=== PATIENT | male | born 1955 | race Caucasian/White ===

== ENCOUNTER 2018-07-21 07:09 | Observation (INO) | payer BC ==
[2018-07-21] MEDS ORDERED: NS 0.9% 1000 ML** 1,000 ML IV ONE ×2 (07:37→09:10)
[2018-07-21] MEDS ORDERED: Diltiazem DRIP* 100 MG/100 ML ADDV.BAG IVPB ONE (07:37)
[2018-07-21] MEDS ORDERED: Diltiazem IV* 5 MG/ML 5 ML VIAL (for loading dose/IV Push) (25 MG) IV SLOW PU ONE (07:37)
--- NOTE | 2018-07-21 07:37 | ED ---
Palpitations / Dysrhythmia - HPI Summary HPI Summary: A 62 y/o male presents to [facility] with a chief complaint of atrial fibrillation since 06:00 07/21/18. He reports that he felt his symptoms coming on for the past week. Per triage note, the patient has a 4-5 year Hx of a-fib. The patient is also diaphoretic. He claims that he may have a little SOB and CP due to bronchitis. He claims that he takes Metoprolol and Ramipril. he reports that his PCP is Casper Donald at Dr. Bender's office and his warehouse distribution associate is Dr. Rodriguez. - History of Current Complaint Chief Complaint: EDDysrhythmPalp Time Seen by Provider: 07/21/18 07:26 Hx Obtained From: Patient Onset/Duration: Lasting Hours, Still Present Timing: Constant Severity Initially: Mild Severity Currently: Mild Character: Irregular Aggravating: Nothing Alleviating: Nothing Associated Signs & Symptoms: Chest Pain, Shortness of Breath, Diaphoresis - Allergy/Home Medications Allergies/Adverse Reactions: Allergies Allergy/AdvReac Type Severity Reaction Status Date / Time No Known Allergies Allergy Verified 05/04/14 07:59 Home Medications: Home Medications Metformin HCl 500 mg PO QID 07/21/18 [History Confirmed 07/21/18] Ramipril 5 mg PO SEE INSTRUCTIONS 07/21/18 [History Confirmed 07/21/18] Ramipril 10 mg PO SEE INSTRUCTIONS 07/21/18 [History Confirmed 07/21/18] PMH/Surg Hx/FS Hx/Imm Hx Endocrine/Hematology History: Denies: Hx Diabetes Cardiovascular History: Reports: Hx Angioplasty - 3 stents, Hx Atrial Fibrillation, Hx Coronary Artery Disease, Hx Hypercholesterolemia, Hx Hypertension Denies: Hx Auto Implanted Cardiovert Defib Respiratory History: Reports: Hx Sleep Apnea - current CPAP user GI History: Reports: Hx Diverticulosis History: Denies: Hx Renal Disease Musculoskeletal History: Reports: Hx Back Problems - chronic pain, was told to do PT, has not done so yet 06/2013 Sensory History: Reports: Hx Contacts or Glasses Opthamlomology History: Reports: Hx Contacts or Glasses - Surgical History Surgery Procedure, Year, and Place: umbilical hernia repair x 10 yrs, five heart caths with 3 stents placed Hx Anesthesia Reactions: No Infectious Disease History: No Infectious Disease History: Denies: Traveled Outside the [place] in Last 30 Days - Family History Known Family History: Positive: Other - Mother and father positive for coronary disease, Sister has arrhythmia - Social History Alcohol Use: None Substance Use Type: Reports: None Smoking Status (MU): Never Smoked Tobacco Review of Systems Positive: Skin Diaphoresis. Negative: Fever Positive: Chest Pain, Other - Positive: atrial fibrillation Positive: Shortness Of Breath All Other Systems Reviewed And Are Negative: Yes Physical Exam - Summary Physical Exam Summary: Appearance: The patient is well-nourished in no acute distress and in no acute pain. Skin: The skin is warm and dry and skin color reflects adequate perfusion. HEENT: The head is normocephalic and atraumatic. The pupils are equal and reactive. The conjunctivae are clear and without drainage. Nares are patent and without drainage. Mouth reveals moist mucous membranes and the throat is without erythema and exudate. The external ears are intact. The ear canals are patent and without drainage. The tympanic membranes are intact. Neck: The neck is supple with full range of motion and non-tender. There are no carotid bruits. There is no neck vein distension. Respiratory: Chest is non-tender. Lungs are clear to auscultation and breath sounds are symmetrical and equal. Cardiovascular: Tachycardic, irregular rhythm. There is no murmur or rub auscultated. There is no peripheral edema and pulses are symmetrical and equal. Abdomen: The abdomen is soft and non-tender. There are normal bowel sounds heard in all four quadrants and there is no organomegaly palpated. Musculoskeletal: There is no back tenderness noted. Extremities are non-tender with full range of motion. There is good capillary refill. There is no peripheral edema or calf tenderness elicited. Neurological: Patient is alert and oriented to person, place and time. The patient has symmetrical motor strength in all four extremities. Cranial nerves are grossly intact. Deep tendon reflexes are symmetrical and equal in all four extremities. Psychiatric: The patient has an appropriate affect and does not exhibit any anxiety or depression. Triage Information Reviewed: Yes Vital Signs On Initial Exam: Initial Vitals Temp Pulse Resp BP Pulse Ox 98.2 F 98 22 97/79 98 07/21/18 07:16 07/21/18 07:16 07/21/18 07:16 07/21/18 07:16 07/21/18 07:16 Vital Signs Reviewed: Yes Diagnostics - Vital Signs Vital Signs Temp Pulse Resp BP Pulse Ox 07/21/18 07:16 98.2 F 98 22 97/79 98 - Laboratory Result Diagrams: 07/21/18 07:31 07/21/18 07:31 Lab Statement: Any lab studies that have been ordered have been reviewed, and results considered in the medical decision making process. - EKG 07:21 Cardiac Rate: Other Rate - Atrial fibrillation at 162 bpm EKG Rhythm: Atrial Fibrillation Summary of EKG Findings: Atrial fibrillation at 162 bpm with RVR. Course/Dx - Course Course Of Treatment: Mr. Rodrigues presented to the emergency department concerned that he was in atrial fibrillation. The last week or so has been feeling his heart rate going irregularly when he is quiet. Today he noticed it going fast and irregular when he was active. He denied any chest pain or shortness of breath he was nontoxic in appearance on arrival albeit slightly diaphoretic. He was placed in a room on a monitor, an IV was initiated and an EKG was obtained. He was noted to be in atrial fibrillation with RVR and he was given a Cardizem bolus and started on a drip. He tolerated these well and his lab work was unremarkable aside from a mildly elevated lactic acid. The hospitalist service was contacted for admission - Diagnoses Provider Diagnoses: Atrial fibrillation with rapid ventricular response - Physician Notifications Discussed Care Of Patient With: Vangie Lea Time Discussed With Above Provider: 08:45 Instructed by Provider To: Admit As Inpatient - Critical Care Time Critical Care Time: 30-74 min Discharge - Sign-Out/Discharge Documenting (check all that apply): Patient Departure - admit - Discharge Plan Condition: Fair Disposition: ADMITTED TO [facility] - Billing Disposition and Condition Condition: FAIR Disposition: Admitted to [facility] - Attestation Statements Document Initiated by Scribe: Yes Documenting Scribe: Himanshu Ortiz Provider For Whom Hernando is Documenting (Include Credential): Charly Vogt MD Scribe Attestation: IHimanshu, scribed for Charly Vogt MD on 07/21/18 at 1437. Scribe Documentation Reviewed: Yes Provider Attestation: The documentation as recorded by the Himanshu pichardo accurately reflects the service I personally performed and the decisions made by me, Charly Vogt MD Status of Scribe Document: Viewed
[2018-07-21] MEDS ORDERED: Diltiazem IV* 5 MG/ML 5 ML VIAL (for loading dose/IV Push) (25 MG) ONE (07:40)
[2018-07-21 07:57] LABS: ABS Basophils 0 10^3/ul (0-0.2); ABS Eosinophils 0 10^3/ul (0-0.6); ABS Monocytes 0.4 10^3/ul (0-0.8); ABS Nucleated RBC 0 10^3/ul; Eosinophil % 0.9 %; Hematocrit 46 % (42-52); Mean Corpuscular HGB Conc 35 g/dl (31-36); Mean Corpuscular Hemoglobin 33 pg (27-31); Mean Corpuscular Volume 97 fL (80-94); Mean Platelet Volume 9.7 fL (7.4-10.4); Nucleated Red Blood Cells % 0.1; Platelet Count 140 10^3/ul (150-450); Red Blood Count 4.77 10^6/ul (4.00-5.40); Red Cell Distribution Width 13 % (10.5-15); White Blood Count 4.5 10^3/ul (3.5-10.8)
[2018-07-21] MEDS ORDERED: Diltiazem IV VIAL* 125 MG in NS 0.9% 100 ML* 100 ML IV ONE ×2 (08:00→09:11)
[2018-07-21] MEDS ORDERED: Diltiazem IV VIAL* 125 MG in NS 0.9% 100 ML* 100 ML IV SCH (08:00)
[2018-07-21 08:02] LABS: INR 0.87 (0.77-1.02)
[2018-07-21 08:15] LABS: Albumin 4.4 g/dL (3.2-5.2); Albumin/Globulin Ratio 1.3 (1-3); BUN/Creatinine Ratio 15.7 (8-20); EGFR African American 61.9 (>60); EGFR Non-African American 51.2 (>60); Globulin 3.4 g/dL (2-4); Magnesium 2.1 mg/dL (1.9-2.7); Potassium 3.6 mmol/L (3.5-5.0); Total Bilirubin 0.9 mg/dL (0.2-1.0); Total Protein 7.8 g/dL (6.4-8.9)
[2018-07-21 08:17] LABS: Troponin I 0.01 ng/mL (<0.04)
[2018-07-21 08:44] LABS: TSH (Thyroid Stimulating Horm) 5.54 mcIU/mL (0.34-5.60)
--- OUTSIDE RECORDS SUMMARY | 2018-07-21 08:51 | XMS REPORT | Continuity of Care Document ---
:1955 External Reference #:[id number] Author Name ChaconJessica aguirre Care Team Providers Name Role Phone Gabriella Bender MD Primary Care Physician Unavailable Payers Type Date Identification Numbers Payment Provider Subscriber Effective: Policy Number: [id number] BS Facets Neri Parmar 2015 PayID: [id number] [address]Enma Curtis [place] [address] Expires: 2015 Policy Number: [id number] [employer]ets Neri Parmar PayID: [id number] [address] [address] [place] [address] Expires: 2012 Policy Number: [id number] BS Gabriella MANDY Retana Brettobiastabitha PayID: [id number] [facility] [address] [place] [address] Advance Directives Description No Information Available Problems Date Description Provider Status Onset: 01/30/2011 Adult health examination Max Llamas M.D. Active Onset: 01/30/2011 Benign essential hypertension Max Llamas M.D. Active Onset: 01/30/2011 Coronary arteriosclerosis Max Llamas M.D. Active Onset: 01/30/2011 Pure hypercholesterolemia Max Llamas M.D. Active Onset: 01/30/2011 Sleep apnea Max Llamas M.D. Active Onset: 01/30/2011 Abdominal aortic aneurysm without Max Llamas M.D. Active rupture Onset: 10/09/2011 Mixed hyperlipidemia Max Llamas M.D. Active Onset: 10/09/2011 Impaired fasting glycaemia Max Llamas M.D. Active Onset: 10/09/2011 Dizziness and giddiness Max Llamas M.D. Active Onset: 10/09/2011 Neck pain Max Llamas M.D. Active Onset: 04/24/2009 Obstructive sleep apnea syndrome Michelle Lozada, REBECCA, Active RN, CLASSIFICATIONS OFFICER CC/CM- Onset: 03/22/2015 Chronic ischemic heart disease, Robert Rodriguez M.D., Active unspecified [facility] Onset: 03/28/2015 Essential hypertension Max Llamas M.D. Active Onset: 12/02/2015 Type 2 diabetes mellitus Max Llamas M.D. Active Onset: 04/08/2017 Peripheral vascular disease Max Llamas M.D. 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 [employer] Tobacco Use Start: Unknown End: Former Pipe Smoker quit 2011 Unknown Smoking Status Reviewed: 07/08/18 Former Pipe Smoker quit 2011 ETOH Use Denies alcohol use Tobacco Use Start: Unknown Quit pipe 2011 on Father's Day ; Quit cigarretes 10 years ago Recreational Drug Use Denies Drug Use Exercise Type/Frequency Exercises sporadically Allergies, Adverse Reactions, Alerts Description No Known Drug Allergies Medications Medication Date Status Form Strength Qnty SIG Indications Ordering Provider Ramipril 07/08/ Active Capsules 5mg 30caps 1 by Casper 2018 mouth Odilon, DONI every day Ramipril 04/28/ Active Capsules 10mg 30caps 1 by I10 Casper 2018 mouth Odilon, [employer] every day Onetouch Ultra 12/02/ Active Kit w/Device 1units check Max Perez 2 2015 blood Muriel, sugar as M.D. needed Metformin HCL 12/01/ Active Tablets 500mg 120tab 2 by E11.9 Benson 2016 s mouth Pachikara, twice a M.D. day Cpap Mask And 09/26/ Active Device cpap G47.30 Max Lacey 2014 supplies Muriel -machine, Angel headgear, cushion, tubing, filters, machine recheck for sleep apnea dx 780.57 Metoprolol 10/14/ Active Tablets ER 50mg 90tabs 1 by Robert Stallings Succinate ER 2012 24HR mouth Rodriguez, every day M.D., FACC, FASNC Simvastatin 01/08/ Active Tablets 40mg 90tabs take 1 Max Perez 2008 tablet at Muriel, bedtime M.D. Aspirin / Active Tablets 81mg 100tab 1 PO qd Barken, 0000 s MD Jesse Co Q-10 / Active Capsules 100 90caps 1 po qd Unknown 0000 Prevident 5000 / Active Paste 1.1% daily Unknown Booster Plus 0000 Nitroglycerin / Active Tablets 0.4mg 25tabs 1 sl Robert Stallings 0000 Sub q5mins x3 Rodriguez, as needed M.D., for chest FACC, pain FASNC Ramipril 05/26/ Hx Capsules 5mg 30caps 1 by Casper 2018 - mouth DONI Donald 07/08/ every day 2018 Ramipril 04/07/ Hx Capsules 5mg 90caps 1 by I10 Casper 2017 - mouth Odilon [employer] 04/28/ every day 2017 Amoxicillin/Cla 03/03/ Hx Tablets 875-125mg 30tabs 1 by K57.32 Gene velazquez 2016 - mouth Schwed, Potassium 04/02/ twice a M.D. 2016 day Augmentin 02/19/ Hx Tablets 875-125mg 20tabs 2 tabs Michelle 2015 for 10 Lozada, days by DNP, RN, mouth CLASSIFICATIONS OFFICER CC/CM-BC (started on 02/15/15) Cipro 02/05/ Hx Tablets 500mg 20tabs 1 by Other 2015 - mouth Ordering 02/07/ twice a Provider 2014 day Flagyl 02/05/ Hx Tablets 500mg 30tabs 1 by Other 2014 - mouth Ordering 02/07/ daily Provider 2014 Nitrostat 09/26/ Hx Tablets 0.4mg 25tabs one sl I25.10 Robert Stallings 2015 - Sub q5min up Michael, 11/17/ to 3 M.D., 2017 doses as FACC, needed FASNC Cipro 07/16/ Hx Tablets 750mg 14tabs 1 po bid Max Perez 2011 - Muriel, 10/08/ M.D. 2012 Flagyl 07/16/ Hx Tablets 500mg 28tabs 1 po qid Max Perez 2011 - for 7 Muriel, 10/08/ days M.D. 2011 Azithromycin 04/03/ Hx Tablets 250mg 6tabs 2 qd for Jadon 2010 - 1 day, Binh Hirsch, 10/08/ then 1 qd M.D.,[facility] 2011 Ramipril 03/06/ Hx Capsules 5mg 90caps take 1 Jadon 2010 - capsule D. [place], 03/24/ once M.D.,FACP 2013 daily Lotrisone 12/03/ Hx Cream 1-0.05% 15gm apply bid Max Perez 2009 - for 2-4 Muriel, 01/30/ weeks M.D. 2010 Atenolol 12/25/ Hx Tablets 50mg 180tab take 1 Max Perez 2007 - s tablet by Muriel, 10/14/ mouth M.D. 2012 twice a day Atenolol / Hx Tablets 50mg 90tabs 1 PO qd Max Perez 0000 - Muriel, M.D. 2007 Nitroglycerin / Hx Tablets 0.4mg 25tabs 1 sl as 414.01 Max Perez 0000 - Sub needed Muriel, M.D. 2014 Lipitor / Hx Tablets 20mg 30tabs 1 po qhs Max Perez 0000 - Muriel, 01/08/ M.D. 2008 Altace / Hx Capsules 5mg 90caps 1 PO qd Max Perez 0000 - Muriel, 03/06/ M.D. 2010 Niaspan / Hx Tablets ER 1000mg 90tabs 1 PO qpm Edi 0000 - MD Jesse 2010 Medications Administered in Office Medication Date Status Form Strength Qnty SIG Indications Ordering Provider Inj, Administered Injection Rajat Vasquez Regadenoson, 016 DO Jay Jay 0.1 MG FACC Technetium TC Administered Injection Rajat SLefty 99M 016 DO Jay Jay Tetrofosmin, FACC Per Unit Dose Up To 40 Millicuries Immunizations CPT Code Status Date Vaccine Lot # 54075 Given 01/02/2016 Pneumonia Vaccine [id number] Given 10/02/2015 Zoster (Zostavax) [id number] Given 2008 Tdap - Tetanus/Diptheria/Acellular Pertussis [id number] Given 01/02/1999 Td (History By Patient) 53058 Refused 03/28/2015 Influenza Virus Vaccine, Quadrivalent, Split, Preservative Free Vital Signs Date Vital Result Comment 07/08/2018 8:46am Weight 278.00 lb Heart Rate 61 /min BP Systolic 124 mmHg BP Diastolic 77 mmHg Body Temperature 97.0 F O2 % BldC Oximetry 97 % 04/28/2018 9:47am BP Systolic Sitting 178 mmHg 162/103, 162/98 BP Diastolic Sitting 90 mmHg 162/103, 162/98 04/07/2018 8:41am Height 68 inches 5'8" Weight 275.00 lb Heart Rate 57 /min BP Systolic 158 mmHg BP Diastolic 86 mmHg BP Systolic Recheck 146 mmHg BP Diastolic Recheck 84 mmHg O2 % BldC Oximetry 95 % BMI (Body Mass Index) 41.8 kg/m2 03/11/2018 8:51am Height 68 inches 5'8" Weight 273.56 lb Heart Rate 56 /min BP Systolic Sitting 148 mmHg Lue large cuff BP Diastolic Sitting 94 mmHg Lue large cuff Respiratory Rate 16 /min O2 % BldC Oximetry 97 % BMI (Body Mass Index) 41.6 kg/m2 03/09/2018 8:23am Weight 274.00 lb with shoes Heart Rate 62 /min BP Systolic Sitting 130 mmHg Lue reg cuff BP Diastolic Sitting 74 mmHg Lue reg cuff BP Systolic Standing 128 mmHg Lue reg cuff BP Diastolic Standing 74 mmHg Lue reg cuff Respiratory Rate 12 /min 10/07/2017 8:57am Weight 276.00 lb Heart Rate 62 /min BP Systolic 126 mmHg BP Diastolic 80 mmHg Body Temperature 97.2 F O2 % BldC Oximetry 97 % 04/08/2017 9:21am Height 67.25 inches 5'7.25" Weight 276.00 lb Heart Rate 52 /min BP Systolic Sitting 144 mmHg BP Diastolic Sitting 90 mmHg Body Temperature 97.1 F O2 % BldC Oximetry 98 % BMI (Body Mass Index) 42.9 kg/m2 03/05/2017 8:08am Height 68 inches 5'8" Weight 274.00 lb Heart Rate 68 /min BP Systolic Sitting 122 mmHg BP Diastolic Sitting 84 mmHg Respiratory Rate 14 /min O2 % BldC Oximetry 98 % BMI (Body Mass Index) 41.7 kg/m2 03/03/2017 10:45am Heart Rate 66 /min BP Systolic 136 mmHg BP Diastolic 90 mmHg Respiratory Rate 16 /min Body Temperature 98.3 F 01/11/2017 8:46am Height 68 inches 5'8" Weight 279.00 lb Heart Rate 59 /min BP Systolic 132 mmHg BP Diastolic 70 mmHg Body Temperature 97.0 F O2 % BldC Oximetry 97 % BMI (Body Mass Index) 42.4 kg/m2 11/18/2016 8:21am Weight 274.00 lb with shoes 11/18/2016 8:56am Height 68 inches 5'8" Weight 273.00 lb Heart Rate 64 /min BP Systolic Sitting 142 mmHg Lue large cuff BP Diastolic Sitting 94 mmHg Lue large cuff BP Systolic Standing 136 mmHg Lue large cuff BP Diastolic Standing 88 mmHg Lue large cuff Respiratory Rate 16 /min BMI (Body Mass Index) 41.5 kg/m2 Ejection Fraction 16 echo 06/02/16 10/06/2016 9:00am Weight 276.00 lb Heart Rate 64 /min BP Systolic Sitting 126 mmHg BP Diastolic Sitting 84 mmHg Respiratory Rate 15 /min O2 % BldC Oximetry 98 % 06/23/2016 1:17pm Height 67.5 inches 5'7.50" Weight 282.00 lb no shoes Heart Rate 60 /min BP Systolic Sitting 134 mmHg Lue lrg cuff BP Diastolic Sitting 88 mmHg Lue lrg cuff BP Systolic Standing 138 mmHg BP Diastolic Standing 90 mmHg Respiratory Rate 17 /min BMI (Body Mass Index) 43.5 kg/m2 Ejection Fraction 55-60% 06/02/2016 04/07/2016 9:19am Height 67.5 inches 5'7.50" Weight 274.00 lb Heart Rate 54 /min BP Systolic 118 mmHg BP Diastolic 78 mmHg O2 % BldC Oximetry 96 % BMI (Body Mass Index) 42.3 kg/m2 03/25/2016 8:31am Height 68 inches 5'8" Weight 274.00 lb no shoes Heart Rate 66 /min BP Systolic Sitting 126 mmHg Ra lrg cuff BP Diastolic Sitting 86 mmHg Ra lrg cuff BP Systolic Standing 122 mmHg Ra lrg cuff BP Diastolic Standing 84 mmHg Ra lrg cuff Respiratory Rate 18 /min BMI (Body Mass Index) 41.7 kg/m2 Ejection Fraction 54% 02/13/2014 03/03/2016 2:55pm Height 68 inches 5'8" Weight 271.00 lb Heart Rate 67 /min BP Systolic Sitting 130 mmHg BP Diastolic Sitting 70 mmHg Respiratory Rate 16 /min O2 % BldC Oximetry 97 % BMI (Body Mass Index) 41.2 kg/m2 01/02/2016 9:07am Weight 273.00 lb Heart Rate 55 /min BP Systolic Sitting 123 mmHg BP Diastolic Sitting 72 mmHg Body Temperature 97.0 F 12/02/2015 4:48pm Weight 273.00 lb Heart Rate 72 /min BP Systolic Sitting 137 mmHg BP Diastolic Sitting 86 mmHg Body Temperature 97.9 F 10/02/2015 9:04am Weight 283.00 lb Heart Rate 58 /min BP Systolic Sitting 132 mmHg BP Diastolic Sitting 82 mmHg Body Temperature 96.5 F 03/28/2015 8:44am Height 68.5 inches 5'8.50" Weight 278.00 lb Heart Rate 54 /min BP Systolic 122 mmHg BP Diastolic 80 mmHg Respiratory Rate 13 /min Body Temperature 98.0 F O2 % BldC Oximetry 98 % BMI (Body Mass Index) 41.7 kg/m2 03/22/2015 2:28pm Height 68.5 inches 5'8.50" Weight 278.00 lb Heart Rate 64 /min BP Systolic Sitting 134 mmHg LA, large BP Diastolic Sitting 90 mmHg LA, large BP Systolic Standing 128 mmHg BP Diastolic Standing 88 mmHg BMI (Body Mass Index) 41.7 kg/m2 Ejection Fraction 54% 02/13/14 echo 02/19/2015 3:28pm Height 68.5 inches 5'8.50" Weight 279.00 lb w/shoes on Heart Rate 61 /min BP Systolic Sitting 128 mmHg BP Diastolic Sitting 66 mmHg Respiratory Rate 20 /min O2 % BldC Oximetry 97 % BMI (Body Mass Index) 41.8 kg/m2 Neck Circumference in inches 17.5 02/07/2015 2:16pm Weight 277.00 lb Heart Rate 56 /min BP Systolic Sitting 124 mmHg BP Diastolic Sitting 82 mmHg Body Temperature 98.6 F O2 % BldC Oximetry 96 % 09/26/2014 9:00am Weight 283.75 lb Heart Rate 52 /min BP Systolic Sitting 126 mmHg BP Diastolic Sitting 82 mmHg O2 % BldC Oximetry 98 % 06/01/2014 11:11am Weight 279.00 lb Heart Rate 55 /min BP Systolic Sitting 122 mmHg BP Diastolic Sitting 76 mmHg Body Temperature 96.8 F O2 % BldC Oximetry 95 % 03/27/2014 9:02am Height 67.75 inches 5'7.75" Weight 278.75 lb Heart Rate 60 /min BP Systolic Sitting 118 mmHg BP Diastolic Sitting 72 mmHg BMI (Body Mass Index) 42.7 kg/m2 03/12/2014 9:31am Height 67.75 inches 5'7.75" Weight 273.00 lb Heart Rate 56 /min BP Systolic Sitting 122 mmHg LA lg cuff BP Diastolic Sitting 88 mmHg LA lg cuff BP Systolic Standing 126 mmHg LA lg cuff BP Diastolic Standing 84 mmHg LA lg cuff Respiratory Rate 12 /min BMI (Body Mass Index) 41.8 kg/m2 03/24/2013 9:29am Height 67.75 inches 5'7.75" Weight 281.00 lb Heart Rate 72 /min BP Systolic Sitting 114 mmHg BP Diastolic Sitting 74 mmHg BMI (Body Mass Index) 43.0 kg/m2 10/09/2011 9:06am Height 67.5 inches 5'7.50" Weight 259.75 lb Heart Rate 64 /min BP Systolic Sitting 128 mmHg BP Diastolic Sitting 78 mmHg BMI (Body Mass Index) 40.1 kg/m2 01/30/2011 9:35am Height 63.5 inches 5'3.50" Weight 253.00 lb Heart Rate 64 /min BP Systolic Sitting 134 mmHg BP Diastolic Sitting 80 mmHg BMI (Body Mass Index) 44.1 kg/m2 12/03/2009 8:51am Weight 248.00 lb Heart Rate 62 /min BP Systolic Sitting 120 mmHg BP Diastolic Sitting 80 mmHg Body Temperature 97.8 F 07/16/2009 3:59pm Weight 258.00 lb Heart Rate 68 /min BP Systolic Sitting 136 mmHg BP Diastolic Sitting 70 mmHg 2008 9:59am Height 67 inches 5'7" Weight 257.00 lb Heart Rate 60 /min BP Systolic Sitting 118 mmHg BP Diastolic Sitting 78 mmHg Respiratory Rate 16 /min BMI (Body Mass Index) 40.2 kg/m2 11/30/2007 10:05am Height 67.5 inches 5'7.50" Weight 249.00 lb Heart Rate 60 /min BP Systolic Sitting 128 mmHg BP Diastolic Sitting 84 mmHg BMI (Body Mass Index) 38.4 kg/m2 05/31/2007 9:54am Height 67.5 inches 5'7.50" Weight 250.00 lb Heart Rate 60 /min BP Systolic Sitting 120 mmHg BP Diastolic Sitting 80 mmHg BMI (Body Mass Index) 38.6 kg/m2 Results Test Date Facility Test Result H/L Range Note Comp Metabolic Panel 03/26/2018 [facility] Sodium 141 mmol/L N 135-[address] [place] [address] [phone] Chloride 105 mmol/L N 101-111 Co2 Carbon Dioxide 30 mmol/L N 22-32 Glucose 165 mg/dL High 70-100 Blood Urea Nitrogen 15 mg/dL N 6-24 Creatinine 0.98 mg/dL N 0.67-1.17 BUN/Creatinine Ratio 15.3 N 8-20 Calcium 9.6 mg/dL N 8.6-10.3 Total Protein 7.2 g/dL N 6.4-8.9 Albumin 4.6 g/dL N 3.2-5.2 Globulin 2.6 g/dL N 2-4 Albumin/Globulin Ratio 1.8 N 1-3 Total Bilirubin 1.20 mg/dL High 0.2-1.0 Alkaline Phosphatase 51 U/L N 34-104 Alt 33 U/L N 7-52 Ast 20 U/L N 13-39 Egfr Non- 77.2 >60 Egfr 93.5 >60 1 Potassium 5.3 mmol/L High 3.5-5.0 Anion Gap 6 mmol/L N 2-11 Urine Microalbumin 03/26/2018 [facility] Ur Microalbumin < 15.[address] (mg/L) [place] [address] [phone] Urine Creatinine 145.00 mg/dL Urine Microalbumin/Creatinine TNP <31 2 Laboratory test 03/26/2018 [facility] Hemoglobin A1c 6.8 % High 4.0-5.[address] (Glyco HGB) [place] [address] [phone] Lipid Profile 03/26/2018 [facility] Triglycerides 275 4 (Trig/Chol/HDL) [address] mg/[place] [address] [phone] Cholesterol 121 mg/dL 5 HDL Cholesterol 36.8 mg/dL 6 LDL Cholesterol 29 mg/dL 7 Laboratory test 10/07/2017 [facility] Hemoglobin A1c 6.7 5-7 finding Comp Metabolic Panel 03/29/2017 [facility] Sodium 137 mmol/L N 133-[address] [place] [address] [phone] Chloride 104 mmol/L N 101-111 Co2 Carbon Dioxide 27 mmol/L N 22-32 Glucose 102 mg/dL High 70-100 Blood Urea Nitrogen 23 mg/dL N 6-24 Creatinine 1.06 mg/dL N 0.67-1.17 BUN/Creatinine Ratio 21.7 High 8-20 Calcium 9.3 mg/dL N 8.6-10.3 Total Protein 7.3 g/dL N 6.4-8.9 Albumin 4.6 g/dL N 3.2-5.2 Globulin 2.7 g/dL N 2-4 Albumin/Globulin Ratio 1.7 N 1-3 Total Bilirubin 1.10 mg/dL High 0.2-1.0 Alkaline Phosphatase 44 U/L N 34-104 Alt 18 U/L N 7-52 Ast 16 U/L N 13-39 Egfr Non- 70.8 N >60 Egfr 91.0 N >60 8 Potassium 5.2 mmol/L High 3.5-5.0 Anion Gap 6 mmol/L N 2-11 Urine Microalbumin 03/29/2017 [facility] Urine Creatinine 114.17 mg/dL N Random [address] [place] [address] [phone] Ur Microalbumin (mg/L) < 15.0 mg/L N Urine Microalbumin/Creatinine TNP ug/mg N <31 9 Laboratory test 03/29/2017 [facility] Hemoglobin A1c 6.1 % High 4.0-5.6 [address] (Glyco HGB) [place] [address] [phone] Lipid Profile 03/29/2017 [facility] Triglycerides 263 N 11 (Trig/Chol/HDL) [address] mg/[place] [address] [phone] Cholesterol 134 mg/dL N 12 HDL Cholesterol 36.3 mg/dL N 13 LDL Cholesterol 45 mg/dL N 14 Laboratory test 10/06/2016 [facility] Hemoglobin A1c 6.2 5-7 finding Comp Metabolic Panel 03/30/2016 [facility] Sodium 136 mmol/L N 133-[address] [place] [address] [phone] Potassium 5.5 mmol/L High 3.5-5.0 Chloride 103 mmol/L N 101-111 Co2 Carbon Dioxide 28 mmol/L N 22-32 Anion Gap 5 mmol/L N 2-11 Glucose 99 mg/dL N 70-100 Blood Urea Nitrogen 18 mg/dL N 6-24 Creatinine 1.07 mg/dL N 0.67-1.17 BUN/Creatinine Ratio 16.8 N 8-20 Calcium 9.6 mg/dL N 8.6-10.3 Total Protein 7.4 g/dL N 6.4-8.9 Albumin 4.5 g/dL N 3.2-5.2 Globulin 2.9 g/dL N 2-4 Albumin/Globulin Ratio 1.6 N 1-3 Total Bilirubin 1.00 mg/dL N 0.2-1.0 Alkaline Phosphatase 40 U/L N 34-104 Alt 23 U/L N 7-52 Ast 17 U/L N 13-39 Egfr Non- 70.3 N >60 Egfr 90.4 N >60 15 Laboratory test 03/30/2016 [facility] Hemoglobin A1c 6.0 % N Less than [address] (Glyco HGB) 6.0 [place] [address] [phone] Lipid Profile 03/30/2016 [facility] Triglycerides 206 N 17 (Trig/Chol/HDL) [address] mg/[place] [address] [phone] Cholesterol 118 mg/dL N 18 HDL Cholesterol 37.0 mg/dL N 19 LDL Cholesterol 40 mg/dL N 20 Basic Metabolic Panel 01/02/2016 [facility] Sodium 138 mmol/L N 133-[address] [place] [address] [phone] Potassium 4.6 mmol/L N 3.5-5.0 Chloride 105 mmol/L N 101-111 Co2 Carbon Dioxide 27 mmol/L N 22-32 Anion Gap 6 mmol/L N 2-11 Glucose 105 mg/dL High 70-100 Blood Urea Nitrogen 16 mg/dL N 6-24 Creatinine 1.05 mg/dL N 0.67-1.17 BUN/Creatinine Ratio 15.2 N 8-20 Calcium 9.4 mg/dL N 8.6-10.3 Egfr Non- 71.8 N >60 Egfr 92.3 N >60 21 Basic Metabolic 12/03/2015 [facility] Sodium 130 mmol/L Low 133-[address] [place] [address] [phone] Potassium 4.6 mmol/L N 3.5-5.0 Chloride 95 mmol/L Low 101-111 Co2 Carbon Dioxide 28 mmol/L N 22-32 Anion Gap 7 mmol/L N 2-11 Glucose 447 mg/dL High 70-100 Blood Urea Nitrogen 17 mg/dL N 6-24 Creatinine 1.14 mg/dL N 0.67-1.17 BUN/Creatinine Ratio 14.9 N 8-20 Calcium 9.7 mg/dL N 8.6-10.3 Egfr Non- 65.3 N >60 Egfr 84.0 N >60 22 Laboratory test 12/03/2015 [facility] C-Peptide 3.9 ng/mL N 1.1 - [address] 4[address] [place] [address] [phone] Urine 12/03/2015 [facility] Ur Microalbumin 14.0 mg/L N Microalbumin [address] (mg/L) [place] [address] [phone] Urine Creatinine 100.44 mg/dL N Urine Microalbumin/Creatinine 13.9 ug/mg N <31 Laboratory test 12/02/2015 [facility] Hemoglobin A1c 11 High 5-7 finding Laboratory test 09/13/2015 [facility] Surgical Pathology SEE RESULT [address] [place] [address] [phone] Lipid Profile 03/05/2015 [facility] Triglycerides 286 mg/dL N 25, 26 (Trig/Chol/HDL) [address] [place] [address] [phone] Cholesterol 125 mg/dL N 27 HDL Cholesterol 33.8 mg/dL N 28 LDL Cholesterol 34 mg/dL N 29 Comp Metabolic Panel 03/05/2015 [facility] Sodium 137 mmol/L N 133-[address] [place] [address] [phone] Potassium 4.4 mmol/L N 3.5-5.0 Chloride 105 mmol/L N 101-111 Co2 Carbon Dioxide 26 mmol/L N 22-32 Anion Gap 6 mmol/L N 2-11 Glucose 156 mg/dL High 70-100 Blood Urea Nitrogen 14 mg/dL N 6-24 Creatinine 1.04 mg/dL N 0.67-1.17 BUN/Creatinine Ratio 13.5 N 8-20 Calcium 9.1 mg/dL N 8.6-10.3 Total Protein 6.8 g/dL N 6.4-8.9 Albumin 4.3 g/dL N 3.2-5.2 Globulin 2.5 g/dL N 2-4 Albumin/Globulin Ratio 1.7 N 1-3 Total Bilirubin 1.00 mg/dL N 0.2-1.0 Alkaline Phosphatase 50 U/L N 34-104 Alt 30 U/L N 7-52 Ast 20 U/L N 13-39 Egfr Non- 72.8 N >60 Egfr 93.7 N >60 30 Laboratory 03/05/2015 [facility] Hemoglobin A1c 6.5 % High Less [address] (Glyco HGB) [place] [address] 6.0 [phone] Laboratory 02/07/2015 [facility] Urine Culture And SEE RESULT [address] [place] [address] [phone] Ua Routine 02/07/2015 [facility] Ua Specific 1.025 Burton Ua PH 5 Ua Color yellow Ua Appera clear Ua WBC trace Ua Protein negative Ua Glucose negative Ua Ketones trace Ua Bilirubin small Ua Urobilinogen negative Ua Nitrite negative Ua Occult Blood negative Urinalysis Profile 01/31/2015 [facility] Urine Color Yellow N [address] [place] [address] [phone] Urine Appearance Clear N Urine Specific Burton 1.011 N 1.010-1.030 Urine pH 5.0 N 5-9 Urine Urobilinogen Negative N Negative Urine Ketones Negative N Negative Urine Protein Negative N Negative Urine Leukocytes Negative N Negative Urine Blood Negative N Negative Urine Nitrite Negative N Negative Urine Bilirubin Negative N Negative Urine Glucose Negative N Negative Comp Metabolic Panel 01/31/2015 [facility] Sodium 137 mmol/L N 133-[address] [place] [address] [phone] Potassium 4.1 mmol/L N 3.5-5.0 Chloride 103 mmol/L N 101-111 Co2 Carbon Dioxide 27 mmol/L N 22-32 Anion Gap 7 mmol/L N 2-11 Glucose 144 mg/dL High 70-100 Blood Urea Nitrogen 16 mg/dL N 6-24 Creatinine 1.10 mg/dL N 0.67-1.17 BUN/Creatinine Ratio 14.5 N 8-20 Calcium 9.4 mg/dL N 8.6-10.3 Total Protein 7.5 g/dL N 6.4-8.9 Albumin 4.7 g/dL N 3.2-5.2 Globulin 2.8 g/dL N 2-4 Albumin/Globulin Ratio 1.7 N 1-3 Total Bilirubin 1.40 mg/dL High 0.2-1.0 Alkaline Phosphatase 46 U/L N 34-104 Alt 39 U/L N 7-52 Ast 24 U/L N 13-39 Egfr Non- 68.3 N >60 Egfr 87.8 N >60 33 Laboratory test finding 01/31/2015 [facility] Lipase 27 U/L N 11.0-82.[address] [place] [address] [phone] C Reactive Protein 1.48 mg/L N < 5.00 34 CBC Auto Diff 01/31/2015 [facility] White Blood 8.5 10^3/uL N 4.8-10.[address] [place] [address] [phone] Red Blood Count 4.69 10^6/uL N 4.0-5.4 Hemoglobin 15.5 g/dL N 14.0-18.0 Hematocrit 47 % N 42-52 Mean Corpuscular Volume 100 fL High 80-94 Mean Corpuscular Hemoglobin 33 pg High 27-31 Mean Corpuscular HGB Conc 33 g/dL N 31-36 Red Cell Distribution Width 14 % N 10.5-15 Platelet Count 160 10^3/uL N 150-450 Mean Platelet Volume 10 um3 N 7.4-10.4 Abs Neutrophils 6.1 10^3/uL N 1.5-7.7 Abs Lymphocytes 1.7 10^3/uL N 1.0-4.8 Abs Monocytes 0.6 10^3/uL N 0-0.8 Abs Eosinophils 0.1 10^3/uL N 0-0.6 Abs Basophils 0 10^3/uL N 0-0.2 Abs Nucleated RBC 0 10^3/uL N Granulocyte % 71.6 % N 38-83 Lymphocyte % 19.4 % Low 25-47 Monocyte % 7.1 % N 1-9 Eosinophil % 1.5 % N 0-6 Basophil % 0.4 % N 0-2 Nucleated Red Blood Cells % 0 N Laboratory test 01/31/2015 [facility] Lactic Acid 1.4 mmol/L N 0.5-2.2 finding [address] [place] [address] [phone] Inr/Protime 01/31/2015 [facility] Inr 0.92 N 0.78-1.07 [address] [place] [address] [phone] Laboratory test 01/31/2015 [facility] Partial 33.3 seconds N 26.0-36.[address] [place] [address] [place] [address] PTT [phone] Blood Culture SEE RESULT BELOW 35 Laboratory test 09/26/2014 [facility] Hemoglobin A1c 6.3 5-7 finding Laboratory test 05/04/2014 [facility] Blood Urea 16 mg/dL N 6- 24 finding [address] [facility] [place] [address] [phone] Creatinine 05/04/2014 [facility] Creatinine 1.07 mg/dL N 0.67- 1.[address] [place] [address] [phone] Egfr Non- 70.7 N >60 Egfr 91.0 N >60 36 Laboratory test 03/27/2014 [facility] Hemoglobin A1c 5.8 5-7 finding Lipid Profile 03/20/2014 [facility] Triglycerides 255 mg/dL N 37, 38 (Trig/Chol/HDL) [address] [place] [address] [phone] Cholesterol 132 mg/dL N 39 HDL Cholesterol 35.1 mg/dL N 40 LDL Cholesterol 46 mg/dL N 41 Comp Metabolic Panel 03/20/2014 [facility] Sodium 140 mmol/L N 133-145 [address] [place] [address] [phone] Potassium 5.0 mmol/L N 3.7-5.6 Chloride 105 mmol/L N 101-111 Co2 Carbon Dioxide 31 mmol/L N 22-32 Anion Gap 4 mmol/L N 2-11 Glucose 142 mg/dL High 70-100 Blood Urea Nitrogen 17 mg/dL N 6-24 Creatinine 1.10 mg/dL N 0.67-1.17 BUN/Creatinine Ratio 15.5 N 8-20 Calcium 9.4 mg/dL N 8.6-10.3 Total Protein 6.7 g/dL N 6.4-8.9 Albumin 4.2 g/dL N 3.2-5.2 Globulin 2.5 g/dL N 2-4 Albumin/Globulin Ratio 1.7 N 1-3 Total Bilirubin 0.90 mg/dL N 0.2-1.0 Alkaline Phosphatase 48 U/L N 34-104 Alt 27 U/L N 7-52 Ast 18 U/L N 13-39 Egfr Non- 68.5 N >60 Egfr 88.1 N >60 42 CBC Auto Diff 03/24/2013 [facility] White Blood 5.0 10^3/uL 4.8-10.[address] [place] [address] [phone] Red Blood Count 4.45 10^6/uL 4.0-5.4 Hemoglobin 15.3 g/dL 14.0-18.0 Hematocrit 45 % 42-52 Mean Corpuscular Volume 101 fL High 80-94 Mean Corpuscular Hemoglobin 34 pg High 27-31 Mean Corpuscular HGB Conc 34 g/dL 31-36 Red Cell Distribution Width 14 % 10.5-15 Platelet Count 155 10^3/uL 150-450 Mean Platelet Volume 11 um3 High 7.4-10.4 Abs Neutrophils 3.0 10^3/uL 1.5-7.7 Abs Lymphocytes 1.5 10^3/uL 1.0-4.8 Abs Monocytes 0.4 10^3/uL 0-0.8 Abs Eosinophils 0.1 10^3/uL 0-0.6 Abs Basophils 0 10^3/uL 0-0.2 Abs Nucleated RBC 0 10^3/uL Granulocyte % 60.6 % 38-83 Lymphocyte % 30.2 % 25-47 Monocyte % 7.1 % 1-9 Eosinophil % 1.8 % 0-6 Basophil % 0.3 % 0-2 Nucleated Red Blood Cells % 0.1 Comp Metabolic Panel 03/24/2013 [facility] Sodium 140 mmol/L 133-145 [place] [address] [phone] Potassium 4.7 mmol/L 3.5-5.0 Chloride 104 mmol/L 101-111 Co2 Carbon Dioxide 29.0 mmol/L 22-32 Anion Gap 7.0 mmol/L 2-11 Glucose 107 mg/dL High 70-100 Blood Urea Nitrogen 13 mg/dL 6-24 Creatinine 1.00 mg/dL 0.50-1.40 BUN/Creatinine Ratio 13.0 8-20 Calcium 9.6 mg/dL 8.1-9.9 Total Protein 6.6 g/dL 6.2-8.1 Albumin 4.3 g/dL 3.6-5.4 Globulin 2.3 g/dL 2-4 Albumin/Globulin Ratio 1.9 1-3 Total Bilirubin 1.6 mg/dL High 0.4-1.5 Alkaline Phosphatase 48 U/L 30-110 Alt 36 U/L 14-54 Ast 20 U/L 12-42 Egfr Non- 76.7 >60 Egfr 98.7 >60 43 Laboratory 03/24/2013 [facility] Hepatitis C Nonreactive Nonreactive 44 test finding [facility] [place] [address] [phone] Vitamin B12 405 pg/mL 180-914 45 Folate > 24.8 ng/mL High 2-16 46 Lipid Profile 03/24/2013 [facility] Triglycerides 215 mg/dL High 40-200 (Trig/Chol/HDL) [place] [address] [phone] Cholesterol 126 mg/dL Less than 200 HDL Cholesterol 32 mg/dL Low 40-60 47 Cholesterol/HDL Ratio 3.9 Average 1-4.44 LDL Cholesterol 51.0 Less Than 100 48 Laboratory test 11/22/2011 [facility] Hemoglobin A1c 5.7 % Less Than [address] [place] [address] 6.0 [place] [address] [phone] MRSA/Vre Screen 11/22/2011 [facility] M --------- [address] [facility] ------- [place] [address] <SEE [phone] NOTE> CBC Auto Diff 11/21/2011 [facility] White Blood 6.7 CUMM 4.8- 10.[address] [place] [address] [phone] Red Cell Count 4.42 CUMM Low 4.6-6.2 Hemoglobin 15.6 g/dL 14.0-18.0 Hematocrit 44 % 42-52 Mean Corpuscular Volume 100 um3 High 80-94 Mean Corpuscular Hemoglob 35 pg High 27-31 Mean Corpuscular HGB Cone 35 g/dL 32-36 Redcell Distribution WDTH 13 % 10.5-15 Platelet Count 139 CUMM Low 150-450 Mean Platelet Volume 10.1 um3 7.4-10.4 Gran % 53.4 % 38-83 Lymph % 35.0 % 25-47 Mononuclear % 8.1 % 1-9 Eosinophil % 2.7 % 0-6 Basophil % 0.8 % 0-2 Abs Lymphs 2.4 1.0-4.8 Abs Mononuclear 0.5 0-0.8 Absolute Neutrophil Count 3.5 1.5-7.7 Abs Eosinophils 0.2 0-0.6 Abs Basophils 0.1 0-0.2 Comp Metabolic Panel 11/21/2011 [facility] Sodium 139 mmol/L 135-[address] [place] [address] [phone] Potassium 3.8 mmol/L 3.5-5.0 Chloride 105 mmol/L 101-111 Co2 (Carbon Dioxide) 25.0 mmol/L 22-32 Anion Gap 9.0 mmol/L 2-11 51 Glucose 155 mg/dL High 70-100 BUN 20 mg/dL 6-24 Creatinine 1.1 mg/dL 0.50-1.40 One Over Creatinine 0.90 BUN/Creatinine Ratio 18.2 8-20 Calcium 9.2 mg/dL 8.1-9.9 Total Protein 6.5 GM/DL 6.2-8.1 Albumin 4.2 GM/DL 3.6-5.4 Globulin 2.3 GM/DL 2-4 Albumin/Globulin Ratio 1.8 1-3 Bilirubin Total 1.1 mg/dL 0.4-1.5 52 Alkaline Phosphatase 73 U/L 39-117 Alt (SGPT) 43 U/L 17-63 Ast (Sgot) 32 U/L 12-42 eGFR Non- 69.2 > 60 eGFR 89.1 > 60 53 Liver Function 11/21/2011 [facility] Bilirubin Direct 0.2 mg/dL 0.1-0.5 Panel [address] [place] [address] [phone] Indirect Bilirubin 0.9 mg/dL 0.3-1.0 54 Laboratory test 11/21/2011 [facility] Magnesium 2.1 mg/dL 1.7 -2.6 finding [address] [place] [address] [phone] Amylase 40 U/L 20-120 55 CPK (Creatine Kinase) 152 U/L 0-200 CKMB 11/21/2011 [facility] CKMB In NG/ML 1.7 NG/ML 0.3-4.0 [address] [place] [address] [phone] % CKMB 1 %MB 0-9 56 Laboratory test 11/21/2011 [facility] Troponin-I 0.01 NG/ML 0 -0.06 57 finding [address] [place] [address] [phone] TSH 3.42 MIU/ML 0.34-5.60 Laboratory test 10/09/2011 [facility] In House Hemoglobin A1c 5.9 5-[address] [facility] 09/04/2011 [facility] TSH 2.16 MIU/ML 0.34- 5.60 Panel [address] [place] [address] [phone] Comp Metabolic 09/04/2011 [facility] Sodium 140 mmol/L 135- 145 Panel [address] [place] [address] [phone] Potassium 4.8 mmol/L 3.5-5.0 Chloride 108 mmol/L 101-111 Co2 (Carbon Dioxide) 27.0 mmol/L 22-32 Anion Gap 5.0 mmol/L 2-11 58 Glucose 121 mg/dL High 70-100 BUN 16 mg/dL 6-24 Creatinine 1.1 mg/dL 0.50-1.40 One Over Creatinine 0.90 BUN/Creatinine Ratio 14.5 8-20 Calcium 8.8 mg/dL 8.1-9.9 Total Protein 6.5 GM/DL 6.2-8.1 Albumin 4.1 GM/DL 3.6-5.4 Globulin 2.4 GM/DL 2-4 Albumin/Globulin Ratio 1.7 1-3 Bilirubin Total 1.2 mg/dL 0.4-1.5 59 Alkaline Phosphatase 43 U/L 39-117 Alt (SGPT) 40 U/L 17-63 Ast (Sgot) 25 U/L 12-42 eGFR Non- 69.2 > 60 eGFR 89.1 > 60 60 Lipid Profile 09/04/2011 [facility] Triglyceride 216 mg/dL High 40-200 (Trig/Chol/HDL) [address] [place] [address] [phone] Cholesterol 131 mg/dL Less Than 200 61 High Density Lipoprotein 33 mg/dL Low 40-60 62 Cholesterol/HDL Ratio 3.97 AVERAGE 1-4.97 Low Density Lipoprotein 55 mg/dL Less Than 100 63 CBC Auto Diff 09/04/2011 [facility] White Blood 5.3 CUMM 4.8- 10.[address] [place] [address] [phone] Red Cell Count 4.34 CUMM Low 4.6-6.2 Hemoglobin 15.2 g/dL 14.0-18.0 Hematocrit 43 % 42-52 Mean Corpuscular Volume 100 um3 High 80-94 Mean Corpuscular Hemoglob 35 pg High 27-31 Mean Corpuscular HGB Cone 35 g/dL 32-36 Redcell Distribution WDTH 13 % 10.5-15 Platelet Count 148 CUMM Low 150-450 Mean Platelet Volume 10.5 um3 High 7.4-10.4 Gran % 58.2 % 38-83 Lymph % 30.4 % 25-47 Mononuclear % 7.8 % 1-9 Eosinophil % 3.2 % 0-6 Basophil % 0.4 % 0-2 Abs Lymphs 1.6 1.0-4.8 Abs Mononuclear 0.4 0-0.8 Absolute Neutrophil Count 3.1 1.5-7.7 Abs Eosinophils 0.2 0-0.6 Abs Basophils 0 0-0.2 Lipid Profile 11/14/2010 [facility] Triglyceride 195 mg/dL 40 -200 (Trig/Chol/HDL) [address] [place] [address] [phone] Cholesterol 113 mg/dL Less Than 200 64 High Density Lipoprotein 44 mg/dL 40-60 65 Cholesterol/HDL Ratio 2.57 AVERAGE 1-4.97 Low Density Lipoprotein 30 mg/dL Less Than 100 66 Laboratory test finding 11/14/2010 [facility] Alt (SGPT) 28 U/L 17-63 [address] [place] [address] [phone] CPK (Creatine Kinase) 101 U/L 0-200 DR [facility] 06/12/2010 [facility] TSH 1.72 MIU/ML 0.34- 5.60 Panel [address] [place] [address] [phone] Comp Metabolic 06/12/2010 [facility] Sodium 139 mmol/L 135- 145 Panel [address] [place] [address] [phone] Potassium 4.6 mmol/L 3.5-5.0 Chloride 103 mmol/L 101-111 Co2 (Carbon Dioxide) 27.0 mmol/L 22-32 Anion Gap 9.0 mmol/L 2-11 67 Glucose 93 mg/dL 70-100 BUN 15 mg/dL 6-24 Creatinine 1.10 mg/dL 0.50-1.40 One Over Creatinine 0.90 BUN/Creatinine Ratio 13.6 8-20 Calcium 9.2 mg/dL 8.1-9.9 Total Protein 6.9 GM/DL 6.2-8.1 Albumin 4.3 GM/DL 3.6-5.4 Globulin 2.6 GM/DL 2-4 Albumin/Globulin Ratio 1.7 1-3 Bilirubin Total 2.1 mg/dL High 0.4-1.5 68 Alkaline Phosphatase 48 U/L 39-117 Alt (SGPT) 34 U/L 17-63 Ast (Sgot) 30 U/L 12-42 eGFR Non- 73.9 > 60 eGFR 89.4 > 60 69 Lipid Profile 06/12/2010 [facility] Triglyceride 156 mg/dL 40 -200 (Trig/Chol/HDL) [address] [place] [address] [phone] Cholesterol 116 mg/dL Less Than 200 70 High Density Lipoprotein 33 mg/dL Low 40-60 71 Cholesterol/HDL Ratio 3.52 AVERAGE 1-4.97 Low Density Lipoprotein 52 mg/dL Less Than 100 72 CBC With 06/12/2010 [facility] White Blood 4.8 CUMM 4.8-10.8 Electronic Diff [address] [place] [address] [phone] Red Cell Count 4.65 CUMM 4.6-6.2 Hemoglobin 16.2 g/dL 14.0-18.0 Hematocrit 46 % 42-52 Mean Corpuscular Volume 99 um3 High 80-94 Mean Corpuscular Hemoglob 35 pg High 27-31 Mean Corpuscular HGB Cone 35 g/dL 32-36 Redcell Distribution WDTH 13 % 10.5-15 Platelet Count 163 CUMM 150-450 Mean Platelet Volume 8.4 um3 7.4-10.4 Gran % 54.9 % 38-83 Lymph % 31.0 % 25-47 Mononuclear % 10.9 % High 1-9 Eosinophil % 2.9 % 0-6 Basophil % 0.3 % 0-2 Abs Lymphs 1.5 1.0-4.8 Abs Mononuclear 0.5 0-0.8 Absolute Neutrophil Count 2.6 1.5-7.7 Abs Eosinophils 0.1 0-0.6 Abs Basophils 0 0-0.2 CMP Panel Stat 07/10/2009 [facility] Sodium 136 mmol/L 135- [address] [place] [address] [phone] Potassium 3.9 mmol/L 3.5-5.0 Chloride 105 mmol/L 101-111 Co2 (Carbon Dioxide) 26.0 mmol/L 22-32 Anion Gap 5.0 mmol/L 2-11 73 Glucose 91 mg/dL 70-100 74 BUN 17 mg/dL 6-24 Creatinine 1.13 mg/dL 0.50-1.40 One Over Creatinine 0.80 BUN/Creatinine Ratio 15.0 8-20 Calcium 8.8 mg/dL 8.1-9.9 75 Total Protein 7.4 GM/DL 6.2-8.1 Albumin 4.2 GM/DL 3.6-5.4 Globulin 3.2 GM/DL 2-4 Albumin/Globulin Ratio 1.3 1-3 Bilirubin Total 1.7 mg/dL High 0.4-1.5 76 Alkaline Phosphatase 53 U/L 39-117 Alt (SGPT) 28 U/L 17-63 Ast (Sgot) 21 U/L 12-42 eGFR Non- 71.9 > 60 eGFR 87.0 > 60 77 Laboratory test 07/10/2009 [facility] Amylase Stat 38 U/L 30- [address] [place] [address] [phone] Lipase 29 U/L 22-51 CBC With Manual 07/10/2009 [facility] White Blood 10.2 CUMM 4.8-10.8 Diff Stat [address] [place] [address] [phone] Red Cell Count 4.57 CUMM Low 4.6-6.2 Hemoglobin 15.1 g/dL 14.0-18.0 Hematocrit 45 % 42-52 Mean Corpuscular Volume 98 um3 High 80-94 Mean Corpuscular Hemoglob 33 pg High 27-31 Mean Corpuscular HGB Cone 34 g/dL 32-36 Redcell Distribution WDTH 13 % 10.5-15 Platelet Count 151 CUMM 150-450 Mean Platelet Volume 9.4 um3 7.4-10.4 Polysegmented Neutrophil 80 % 38-83 Band Neutrophil 1 % 0-8 Lymphocyte 12 % Low 25-47 Monocyte 5 % 0-13 Eosenophil 1 % 0-6 Atypical Lymph 1 % 0-6 Absolute Neutrophil Count 8.2 Anisocytosis SLIGHT Urinalysis 07/10/2009 [facility] Ua Color YELLOW Yellow [address] [place] [address] [phone] Appearance-Urine CLEAR Clear Specific Burton-Ur 1.025 1.010-1.030 Esterase-Urine NEGATIVE Negative Nitrite NEGATIVE Negative [id number] NEGATIVE Negative Protein-Urine NEGATIVE Negative PH-Urine 6.5 5-9 Blood-Urine NEGATIVE Negative Ketones-Urine NEGATIVE Negative Bilirubin-Ur NEGATIVE Negative Glucose-Urine NEGATIVE Negative Liver Function 03/08/2009 [facility] Total Protein 6.4 GM/DL 6.2-8.1 78 Panel [address] [place] [address] [phone] Albumin 4.3 GM/DL 3.6-5.4 Globulin 2.1 GM/DL 2-4 Albumin/Globulin Ratio 2.0 1-3 Bilirubin Total 1.0 mg/dL 0.4-1.5 79 Bilirubin Direct 0.2 mg/dL 0.1-0.5 Indirect Bilirubin 0.8 mg/dL High 0.1-0.75 Alkaline Phosphatase 56 U/L 39-117 Alt (SGPT) 30 U/L 17-63 Ast (Sgot) 21 U/L 12-42 Lipid Profile 03/08/2009 [facility] Triglyceride 155 mg/dL 40 -200 (Trig/Chol/HDL) [address] [place] [address] [phone] Cholesterol 118 mg/dL Less Than 200 80 High Density Lipoprotein 32 mg/dL Low 40-60 81 Cholesterol/HDL Ratio 3.69 AVERAGE 1-4.97 Low Density Lipoprotein 55 mg/dL Less Than 100 82 Comp Metabolic Panel 2008 [facility] Sodium 139 mmol/L 135-145 [address] [place] [address] [phone] Potassium 4.6 mmol/L 3.5-5.0 Chloride 105 mmol/L 101-111 Co2 (Carbon Dioxide) 27.0 mmol/L 22-32 Anion Gap 7.0 mmol/L 2-11 83 Glucose 93 mg/dL 70-100 84 BUN 9 mg/dL 6-24 Creatinine 0.90 mg/dL 0.50-1.40 One Over Creatinine 1.10 BUN/Creatinine Ratio 10.0 8-20 Calcium 9.3 mg/dL 8.1-9.9 85 Total Protein 6.4 GM/DL 6.2-8.1 Albumin 4.2 GM/DL 3.6-5.4 Globulin 2.2 GM/DL 2-4 Albumin/Globulin Ratio 1.9 1-3 Bilirubin Total 1.2 mg/dL 0.4-1.5 86 Alkaline Phosphatase 49 U/L 39-117 Alt (SGPT) 34 U/L 17-63 Ast (Sgot) 26 U/L 12-42 Lipid Profile 2008 [facility] Triglyceride 144 mg/dL 40 -200 (Trig/Chol/HDL) [address] [place] [address] [phone] Cholesterol 124 mg/dL Less Than 200 87 High Density Lipoprotein 34 mg/dL Low 40-60 88 Cholesterol/HDL Ratio 3.65 AVERAGE 1-4.97 Low Density Lipoprotein 61 mg/dL Less Than 100 89 Laboratory test 2008 [facility] TSH 1.37 MIU/ML 0.34- 5.[address] [place] [address] [phone] PSA Screening 0.34 NG/ML 0-4 90 CBC With 2008 [facility] White Blood 5.8 CUMM 4.8-10.8 Electronic Diff [address] [place] [address] [phone] Red Cell Count 4.40 CUMM Low 4.6-6.2 Hemoglobin 15.2 g/dL 14.0-18.0 Hematocrit 44 % 42-52 Mean Corpuscular Volume 100 um3 High 80-94 Mean Corpuscular Hemoglob 35 pg High 27-31 Mean Corpuscular HGB Cone 35 g/dL 32-36 Redcell Distribution WDTH 13 % 10.5-15 Platelet Count 154 CUMM 150-450 Mean Platelet Volume 10.2 um3 7.4-10.4 Gran % 50.4 % 38-83 Lymph % 36.8 % 25-47 Mononuclear % 8.8 % 1-9 Eosinophil % 3.6 % 0-6 Basophil % 0.4 % 0-2 Abs Lymphs 2.1 1.0-4.8 Abs Mononuclear 0.5 0-0.8 Absolute Neutrophil Count 2.9 1.5-7.7 Abs Eosinophils 0.2 0-0.6 Abs Basophils 0 0-0.2 Comp Metabolic Panel 11/30/2007 [facility] Sodium 139 mmol/L 135-[address] [place] [address] [phone] Potassium 5.1 mmol/L High 3.5-5.0 Chloride 108 mmol/L 101-111 Co2 (Carbon Dioxide) 28.0 mmol/L 22-32 Anion Gap 3.0 mmol/L 2-11 92 Glucose 95 mg/dL 70-105 BUN 20 mg/dL 6-24 Creatinine 1.1 mg/dL 0.5-1.4 One Over Creatinine 0.90 BUN/Creatinine Ratio 18.2 8-20 Calcium 9.2 mg/dL 8.1-9.9 93 Total Protein 6.9 GM/DL 6.2-8.1 Albumin 4.2 GM/DL 3.6-5.4 Globulin 2.7 GM/DL 2-4 Albumin/Globulin Ratio 1.6 1-3 Bilirubin Total 0.9 mg/dL 0.4-1.5 Alkaline Phosphatase 51 U/L 39-117 Alt (SGPT) 37 U/L 17-63 Ast (Sgot) 25 U/L 12-42 CBC With 11/30/2007 [facility] White Blood 5.3 CUMM 4.8-10.8 Electronic Diff [address] [place] [address] [phone] Red Cell Count 4.55 CUMM Low 4.6-6.2 Hemoglobin 15.5 g/dL 14.0-18.0 Hematocrit 45 % 42-52 Mean Corpuscular Volume 99 um3 High 80-94 Mean Corpuscular Hemoglob 34 pg High 27-31 Mean Corpuscular HGB Cone 35 g/dL 32-36 Redcell Distribution WDTH 13 % 10.5-15 Platelet Count 165 CUMM 150-450 Mean Platelet Volume 10.8 um3 High 7.4-10.4 Gran % 50.1 % 38-83 Lymph % 39.4 % 20-45 Mononuclear % 7.8 % 1-9 Eosinophil % 2.5 % 0-6 Basophil % 0.2 % 0-2 Abs Lymphs 2.1 1.0-4.8 Abs Mononuclear 0.4 0-0.8 Absolute Neutrophil Count 2.6 1.5-7.7 Abs Eosinophils 0.1 0-0.6 Abs Basophils 0 0-0.2 Lipid Profile 11/30/2007 [facility] Triglyceride 172 mg/dL 40 -200 (Trig/Chol/HDL) [address] [place] [address] [phone] Cholesterol 141 mg/dL Less Than 200 94 High Density Lipoprotein 38 mg/dL Low 40-60 95 Cholesterol/HDL Ratio 3.71 AVERAGE 1-4.97 Low Density Lipoprotein 69 mg/dL Less Than 100 96 Laboratory test 11/30/2007 [facility] TSH 1.52 MIU/ML 0.34- 5.[address] [place] [address] [phone] 1 Because ethnic data is not always readily available, this report includes an eGFR for both -Americans and non- Americans. The National Kidney Disease Education Program (NKDEP) does not endorse the use of the MDRD equation for patients that are not between the ages of 18 and 70, are , have extremes of body size, muscle mass, or nutritional status, or are non- or non-. According to the National Kidney Foundation, irrespective of diagnosis, the stage of the disease is based on the level of kidney function: Stage Description GFR(mL/min/1.73 m(2)) 1 Kidney damage with normal or decreased GFR 90 2 Kidney damage with mild decrease in GFR 60-89 3 Moderate decrease in GFR 30-59 4 Severe decrease in GFR 15-29 5 Kidney failure <15 (or dialysis) 2 Unable to calculate due to low microalbumin 3 Therapeutic target for the treatment of diabetes mellitus patients is <7% HBA1C, and in selective patients <6.0%. Please refer to [place] Diabetes Association diabetic care guidelines for further information. 4 Desirable: <150 Borderline High: 150-199 High: 200-499 Very High: >500 5 Desirable: <200 Borderline High: 200-239 High: >239 6 Low: <40 Desirable: 40-60 High: >60 7 Desirable: <100 Near Optimal: 100-129 Borderline High: 130-159 High: 160-189 Very High: >189 8 Because ethnic data is not always readily available, this report includes an eGFR for both -Americans and non- Americans. The National Kidney Disease Education Program (NKDEP) does not endorse the use of the MDRD equation for patients that are not between the ages of 18 and 70, are , have extremes of body size, muscle mass, or nutritional status, or are non- or non-. According to the National Kidney Foundation, irrespective of diagnosis, the stage of the disease is based on the level of kidney function: Stage Description GFR(mL/min/1.73 m(2)) 1 Kidney damage with normal or decreased GFR 90 2 Kidney damage with mild decrease in GFR 60-89 3 Moderate decrease in GFR 30-59 4 Severe decrease in GFR 15-29 5 Kidney failure <15 (or dialysis) 9 Unable to calculate due to low microalbumin 10 Therapeutic target for the treatment of diabetes mellitus patients is <7% HBA1C, and in selective patients <6.0%. Please refer to [place] Diabetes Association diabetic care guidelines for further information. 11 Desirable <150 Borderline high 150-199 High 200-499 Very High >500 12 Desirable <200 Borderline high 200-239 High >239 13 Low <40 Desirable: 40-60 High: >60 14 Desirable: <100 mg/dL Near Optimal: 100-129 mg/dL Borderline High: 130-159 mg/dL High: 160-189 mg/dL Very High: >189 mg/dL 15 Because ethnic data is not always readily available, this report includes an eGFR for both -Americans and non- Americans. The National Kidney Disease Education Program (NKDEP) does not endorse the use of the MDRD equation for patients that are not between the ages of 18 and 70, are , have extremes of body size, muscle mass, or nutritional status, or are non- or non-. According to the National Kidney Foundation, irrespective of diagnosis, the stage of the disease is based on the level of kidney function: Stage Description GFR(mL/min/1.73 m(2)) 1 Kidney damage with normal or decreased GFR 90 2 Kidney damage with mild decrease in GFR 60-89 3 Moderate decrease in GFR 30-59 4 Severe decrease in GFR 15-29 5 Kidney failure <15 (or dialysis) 16 Therapeutic target for the treatment of diabetes Mellitus patients is <7% HBA1C, and in selective patients <6.0%.Please refer to [place] Diabetes Association Diabetic care guidelines for further information. 17 Desirable <150 Borderline high 150-199 High 200-499 Very High >500 18 Desirable <200 Borderline high 200-239 High >239 19 Low <40 Desirable: 40-60 High: >60 20 Desirable: <100 mg/dL Near Optimal: 100-129 mg/dL Borderline High: 130-159 mg/dL High: 160-189 mg/dL Very High: >189 mg/dL 21 Because ethnic data is not always readily available, this report includes an eGFR for both -Americans and non- Americans. The National Kidney Disease Education Program (NKDEP) does not endorse the use of the MDRD equation for patients that are not between the ages of 18 and 70, are , have extremes of body size, muscle mass, or nutritional status, or are non- or non-. According to the National Kidney Foundation, irrespective of diagnosis, the stage of the disease is based on the level of kidney function: Stage Description GFR(mL/min/1.73 m(2)) 1 Kidney damage with normal or decreased GFR 90 2 Kidney damage with mild decrease in GFR 60-89 3 Moderate decrease in GFR 30-59 4 Severe decrease in GFR 15-29 5 Kidney failure <15 (or dialysis) 22 Because ethnic data is not always readily available, this report includes an eGFR for both -Americans and non- Americans. The National Kidney Disease Education Program (NKDEP) does not endorse the use of the MDRD equation for patients that are not between the ages of 18 and 70, are , have extremes of body size, muscle mass, or nutritional status, or are non- or non-. According to the National Kidney Foundation, irrespective of diagnosis, the stage of the disease is based on the level of kidney function: Stage Description GFR(mL/min/1.73 m(2)) 1 Kidney damage with normal or decreased GFR 90 2 Kidney damage with mild decrease in GFR 60-89 3 Moderate decrease in GFR 30-59 4 Severe decrease in GFR 15-29 5 Kidney failure <15 (or dialysis) 23 Test Performed by: [place] [address] Supervisor [employer]: Tito Houston II, M.D., Ph.D. 24 SEE RESULT BELOW Name: NERI PARMAR : [address]: Lakhwinder Oneil MD Acct: [id number] Unit: [id number] AGE: 59 Location: ENDO Re09/13/15 SEX: M Status: REG REF SPEC: [id number] ABRAN: 09/13/15- SUBM DR: Lakhwinder Oneil MD REQ: [id number] RECD: 09/13/151148 STATUS: TOSHIA RICH DR: Max Llamas III, MD _ ORDERED: LEVEL IV/2 FINAL DIAGNOSIS 1. Colon, 30 cm, biopsy: -- Hyperplastic polyp. 2. Colon, 15 cm, biopsy: -- Hyperplastic polyp. CLINICAL HISTORY No history given POST-OPERATIVE DIAGNOSIS Colonoscopy to cecum: 2 polyps - 15 cm and 30 cm - biopsied, tics, 5-10 years. GROSS DESCRIPTION 1. The specimen is received in formalin labeled, Biopsy Colon Polyp at 30 cm, and consists of a 0.6 x 0.2 x 0.1 cm andrew-pink irregular soft tissue fragment, which is submitted entirely in one cassette. 2. The specimen is received in formalin labeled, Biopsy Colon Polyp at 15 cm, and consists of two andrew-pink irregular soft tissue fragments measuring 0.2 x 0.2 x 0.2 cm and 0.4 x 0.3 x 0.1 cm, which are submitted entirely in one cassette. Signed (signature on file) Kapil Espinoza MD [id number] END OF REPORT * ML=Testing performed at Main Lab DEPARTMENT OF PATHOLOGY, [address] [place] [address] Kapil Espinoza M.D. Director [facility] # [id number] 25 PT IS FASTING 26 Desirable <150 Borderline high 150-199 High 200-499 Very High >500 27 Desirable <200 Borderline high 200-239 High >239 28 Low <40 Desirable: 40-60 High: >60 29 Desirable: <100 mg/dL Near Optimal: 100-129 mg/dL Borderline High: 130-159 mg/dL High: 160-189 mg/dL Very High: >189 mg/dL 30 Because ethnic data is not always readily available, this report includes an eGFR for both -Americans and non- Americans. The National Kidney Disease Education Program (NKDEP) does not endorse the use of the MDRD equation for patients that are not between the ages of 18 and 70, are , have extremes of body size, muscle mass, or nutritional status, or are non- or non-. According to the National Kidney Foundation, irrespective of diagnosis, the stage of the disease is based on the level of kidney function: Stage Description GFR(mL/min/1.73 m(2)) 1 Kidney damage with normal or decreased GFR 90 2 Kidney damage with mild decrease in GFR 60-89 3 Moderate decrease in GFR 30-59 4 Severe decrease in GFR 15-29 5 Kidney failure <15 (or dialysis) 31 Therapeutic target for the treatment of diabetes Mellitus patients is <7% HBA1C, and in selective patients <6.0%.Please refer to [place] Diabetes Association Diabetic care guidelines for further information. 32 SEE RESULT BELOW Name: NERI PARMAR : [address]: Max Llamas III, MD Acct: [id number] Unit: [id number] AGE: 59 Location: [facility] Re02/07/15 SEX: M Status: REG REF SPEC: [id number] ABRAN: 02/07/15-[address]: Max Llamas III, MD REQ: [id number] RECD: 02/07/15 STATUS: COMP _ SOURCE: URINE SPDESC: ORDERED: Urine Culture Procedure Result Verified Site Urine Culture Final 02/09/15- 1018 ML No Growth Day 2 (<1,000 CFU/mL) * ML - MAIN LAB ([facility]) . END OF REPORT * ML=Testing performed at Main Lab DEPARTMENT OF PATHOLOGY, [address] [place] [address] Kapil Espinoza M.D. Director [facility] # [id number] 33 Because ethnic data is not always readily available, this report includes an eGFR for both -Americans and non- Americans. The National Kidney Disease Education Program (NKDEP) does not endorse the use of the MDRD equation for patients that are not between the ages of 18 and 70, are , have extremes of body size, muscle mass, or nutritional status, or are non- or non-. According to the National Kidney Foundation, irrespective of diagnosis, the stage of the disease is based on the level of kidney function: Stage Description GFR(mL/min/1.73 m(2)) 1 Kidney damage with normal or decreased GFR 90 2 Kidney damage with mild decrease in GFR 60-89 3 Moderate decrease in GFR 30-59 4 Severe decrease in GFR 15-29 5 Kidney failure <15 (or dialysis) 34 Acute inflammation: >10.00 35 SEE RESULT BELOW Name: NERI PARMAR : [address]: Justino Toledo MD Acct: [id number] Unit: [id number] AGE: 59 Location: [place] [address] Re01/31/15 Dis: 02/02/15 SEX: M Status: DIS Ellen SPEC: [id number] ABRAN: 01/31/15-[address]: Tito Palumbo MD REQ: [id number] RECD: 01/31/15161 STATUS: [facility] DR: [facility] Max Llamas III, MD _ SOURCE: BLOOD,[facility]: ORDERED: Blood Cult COMMENTS: Patient is On Antibiotics? NO RAC Procedure Result Verified Site Aerobic Culture Bottle Final 02/05/15- 1613 ML No Growth Day 5 Anaerobic Culture Bottle Final 02/05/15- 1613 ML No Growth Day 5 * ML - MAIN LAB ([facility]) . END OF REPORT * ML=Testing performed at Main Lab DEPARTMENT OF PATHOLOGY, [address] [place] [address] Kapil Espinoza M.D. Director [facility] # [id number] 36 Because ethnic data is not always readily available, this report includes an eGFR for both -Americans and non- Americans. The National Kidney Disease Education Program (NKDEP) does not endorse the use of the MDRD equation for patients that are not between the ages of 18 and 70, are , have extremes of body size, muscle mass, or nutritional status, or are non- or non-. According to the National Kidney Foundation, irrespective of diagnosis, the stage of the disease is based on the level of kidney function: Stage Description GFR(mL/min/1.73 m(2)) 1 Kidney damage with normal or decreased GFR 90 2 Kidney damage with mild decrease in GFR 60-89 3 Moderate decrease in GFR 30-59 4 Severe decrease in GFR 15-29 5 Kidney failure <15 (or dialysis) 37 FASTING 10 HOUR 38 Desirable <150 Borderline high 150-199 High 200-499 Very High >500 39 Desirable <200 Borderline high 200-239 High >239 40 Low <40 Desirable: 40-60 High: >60 41 Desirable <100 Near Optimal 100-129 Borderline high 130-159 High 160-189 Very High >189 42 Because ethnic data is not always readily available, this report includes an eGFR for both -Americans and non- Americans. The National Kidney Disease Education Program (NKDEP) does not endorse the use of the MDRD equation for patients that are not between the ages of 18 and 70, are , have extremes of body size, muscle mass, or nutritional status, or are non- or non-. According to the National Kidney Foundation, irrespective of diagnosis, the stage of the disease is based on the level of kidney function: Stage Description GFR(mL/min/1.73 m(2)) 1 Kidney damage with normal or decreased GFR 90 2 Kidney damage with mild decrease in GFR 60-89 3 Moderate decrease in GFR 30-59 4 Severe decrease in GFR 15-29 5 Kidney failure <15 (or dialysis) 43 Because ethnic data is not always readily available, this report includes an eGFR for both -Americans and non- Americans. The National Kidney Disease Education Program (NKDEP) does not endorse the use of the MDRD equation for patients that are not between the ages of 18 and 70, are , have extremes of body size, muscle mass, or nutritional status, or are non- or non-. According to the National Kidney Foundation, irrespective of diagnosis, the stage of the disease is based on the level of kidney function: Stage Description GFR(mL/min/1.73 m(2)) 1 Kidney damage with normal or decreased GFR 90 2 Kidney damage with mild decrease in GFR 60-89 3 Moderate decrease in GFR 30-59 4 Severe decrease in GFR 15-29 5 Kidney failure <15 (or dialysis) 44 FASTING 45 FASTING 46 FASTING 47 HDL Interpretation: Undesirable: High Risk: Less than 40 mg/dL Desirable: Low Risk: Greater than 60 mg/dL 48 LDL Interpretation: Low Risk Optimal Level: LDL Less than 100 mg/dL Near or Above Optimal: LDL 100-129 mg/dL Borderline High Risk: LDL 130-159 mg/dL High Risk: LDL 160-189 mg/dL Very High Risk: LDL Greater than 189 mg/dL 49 THERAPEUTIC TARGET FOR THE TREATMENT OF DIABETES MELLITUS PATIENTS IS <7% HBA1C, AND IN SELECTIVE PATIENTS <6.0%. PLEASE REFER TO [place] [employer] DIABETIC CARE GUIDELINES FOR FURTHER INFORMATION. 50 RUN DATE: 11/24/11 [facility] NMI LIVE PAGE 1 RUN TIME: 0840 Specimen Inquiry RUN USER: INTERFACE Name: NERI PARMAR Accmatthias#: [id number] Status: DIS IN Re11/22/11 Age/Sex: 55/M Unit#: [id number] Location: [facility] : 53 SPEC #: [id number] ABRAN: 11/22/11 STATUS: CARLIE REQ #: [id number] RECD: 11/22/[address]: Joycelyn HAWKINS,Jadon Purcell SOURCE: [facility] ENTR: 11/22/[address]: Muriel SHEPARD MD, Max PEPPERC: NOSE ORDERED: MRSA/VRE CULT ACT WKST: B 11/24/11 #1 Procedure Result Verified Site > MRSA/VRE CULTURE Final 11/24/11- 08 ML NO MRSA ISOLATED ML - [facility] Permit #[id number] [address] [place] [address] DEPARTMENT OF PATHOLOGY, [address] [place] [address] [facility] Permit #[id number] Kapil Espinoza M.D. Director Dimas Gonzalez M.D. [employer] 51 Anion gap measurement may be of limited value in the presence of any alkalosis, especially in a combined acid base disorder. . 52 A metabolite of Naproxen, O-desmethylnaproxen, has been shown to interfere with the [employer] method for measuring total bilirubin. Samples from patients who have taken Naproxen have shown spurious elevation in total bilirubin levels. 53 Because ethnic data is not always readily available, this report includes an eGFR for both -Americans and non- Americans. The National Kidney Disease Education Program (NKDEP) does not endorse the use of the MDRD equation for patients that are not between the ages of 18 and 70, are , have extremes of body size, muscle mass, or nutritional status, or are non- or non-. According to the National Kidney Foundation, irrespective of diagnosis, the stage of the disease is based on the level of kidney function: Stage Description GFR(mL/min/1.73 m(2)) 1 Kidney damage with normal or decreased GFR 90 2 Kidney damage with mild decrease in GFR 60-89 3 Moderate decrease in GFR 30-59 4 Severe decrease in GFR 15-29 5 Kidney failure <15 (or dialysis) 54 Please note updated reference range, effective 01/09/10 55 PLEASE NOTE NEW REFERENCE RANGE. 56 INTERPRETATION %CK-MB < 5% NOT SUPPORTIVE OF DIAGNOSIS OF AL 5 - <10% INDETERMINATE; SUGGEST SERIAL STUDIES IF CLINICALLY INDICATED 10% OR > CONSISTENT WITH DIAGNOSIS OF AL . 57 New Reference Range and Interpretation effective 03/24/2002 TnI (ng/ml) INTERPRETATION Less Than 0.06 ng/mL NOT SUPPORTIVE OF DIAGNOSIS OF AL 0.06 - 0.50 ng/ml INDETERMINATE: SUGGEST SERIAL STUDIES IF CLINICALLY INDICATED. Greater than 0.5 ng/mL CONSISTENT WITH DIAGNOSIS OF AL . 58 Anion gap measurement may be of limited value in the presence of any alkalosis, especially in a combined acid base disorder. . 59 A metabolite of Naproxen, O-desmethylnaproxen, has been shown to interfere with the [employer] method for measuring total bilirubin. Samples from patients who have taken Naproxen have shown spurious elevation in total bilirubin levels. 60 Because ethnic data is not always readily available, this report includes an eGFR for both -Americans and non- Americans. The National Kidney Disease Education Program (NKDEP) does not endorse the use of the MDRD equation for patients that are not between the ages of 18 and 70, are , have extremes of body size, muscle mass, or nutritional status, or are non- or non-. According to the National Kidney Foundation, irrespective of diagnosis, the stage of the disease is based on the level of kidney function: Stage Description GFR(mL/min/1.73 m(2)) 1 Kidney damage with normal or decreased GFR 90 2 Kidney damage with mild decrease in GFR 60-89 3 Moderate decrease in GFR 30-59 4 Severe decrease in GFR 15-29 5 Kidney failure <15 (or dialysis) 61 CHOLESTEROL INTERPRETATION: Desirable: Less than 200 MG/DL Borderline-High Risk: 200-239 MG/DL High-Risk: 240 MG/DL and over 62 HDL INTERPRETATION: Undesirable: High Risk: Less than 40 MG/DL Desirable: Low Risk: Greater than 60 MG/DL 63 LDL INTERPRETATION: Low Risk Optimal Level: LDL Less than 100 MG/DL Near or Above Optimal: LDL 100-129 MG/DL Borderline High Risk: LDL 130-159 MG/DL High Risk: LDL 160-189 MG/DL Very High Risk: LDL Greater than 189 MG/DL 64 CHOLESTEROL INTERPRETATION: Desirable: Less than 200 MG/DL Borderline-High Risk: 200-239 MG/DL High-Risk: 240 MG/DL and over 65 HDL INTERPRETATION: Undesirable: High Risk: Less than 40 MG/DL Desirable: Low Risk: Greater than 60 MG/DL 66 LDL INTERPRETATION: Low Risk Optimal Level: LDL Less than 100 MG/DL Near or Above Optimal: LDL 100-129 MG/DL Borderline High Risk: LDL 130-159 MG/DL High Risk: LDL 160-189 MG/DL Very High Risk: LDL Greater than 189 MG/DL 67 Anion gap measurement may be of limited value in the presence of any alkalosis, especially in a combined acid base disorder. . 68 A metabolite of Naproxen, O-desmethylnaproxen, has been shown to interfere with the [employer] method for measuring total bilirubin. Samples from patients who have taken Naproxen have shown spurious elevation in total bilirubin levels. 69 Because ethnic data is not always readily available, this report includes an eGFR for both -Americans and non- Americans. The National Kidney Disease Education Program (NKDEP) does not endorse the use of the MDRD equation for patients that are not between the ages of 18 and 70, are , have extremes of body size, muscle mass, or nutritional status, or are non- or non-. According to the National Kidney Foundation, irrespective of diagnosis, the stage of the disease is based on the level of kidney function: Stage Description GFR(mL/min/1.73 m(2)) 1 Kidney damage with normal or decreased GFR 90 2 Kidney damage with mild decrease in GFR 60-89 3 Moderate decrease in GFR 30-59 4 Severe decrease in GFR 15-29 5 Kidney failure <15 (or dialysis) 70 CHOLESTEROL INTERPRETATION: Desirable: Less than 200 MG/DL Borderline-High Risk: 200-239 MG/DL High-Risk: 240 MG/DL and over 71 HDL INTERPRETATION: Undesirable: High Risk: Less than 40 MG/DL Desirable: Low Risk: Greater than 60 MG/DL 72 LDL INTERPRETATION: Low Risk Optimal Level: LDL Less than 100 MG/DL Near or Above Optimal: LDL 100-129 MG/DL Borderline High Risk: LDL 130-159 MG/DL High Risk: LDL 160-189 MG/DL Very High Risk: LDL Greater than 189 MG/DL 73 Anion gap measurement may be of limited value in the presence of any alkalosis, especially in a combined acid base disorder. . 74 Note change in reference range as of 02/09/08. The change was based on recommendations from the [place] Of [place] Diabetes Association. 75 Please note change in reference range effective 07 . 76 A metabolite of Naproxen, O-desmethylnaproxen, has been shown to interfere with the [employer] method for measuring total bilirubin. Samples from patients who have taken Naproxen have shown spurious elevation in total bilirubin levels. 77 Because ethnic data is not always readily available, this report includes an eGFR for both -Americans and non- Americans. The National Kidney Disease Education Program (NKDEP) does not endorse the use of the MDRD equation for patients that are not between the ages of 18 and 70, are , have extremes of body size, muscle mass, or nutritional status, or are non- or non-. According to the National Kidney Foundation, irrespective of diagnosis, the stage of the disease is based on the level of kidney function: Stage Description GFR(mL/min/1.73 m(2)) 1 Kidney damage with normal or decreased GFR 90 2 Kidney damage with mild decrease in GFR 60-89 3 Moderate decrease in GFR 30-59 4 Severe decrease in GFR 15-29 5 Kidney failure <15 (or dialysis) 78 FASTING 79 A metabolite of Naproxen, O-desmethylnaproxen, has been shown to interfere with the [employer] method for measuring total bilirubin. Samples from patients who have taken Naproxen have shown spurious elevation in total bilirubin levels. 80 CHOLESTEROL INTERPRETATION: Desirable: Less than 200 MG/DL Borderline-High Risk: 200-239 MG/DL High-Risk: 240 MG/DL and over 81 HDL INTERPRETATION: Undesirable: High Risk: Less than 40 MG/DL Desirable: Low Risk: Greater than 60 MG/DL 82 LDL INTERPRETATION: Low Risk Optimal Level: LDL Less than 100 MG/DL Near or Above Optimal: LDL 100-129 MG/DL Borderline High Risk: LDL 130-159 MG/DL High Risk: LDL 160-189 MG/DL Very High Risk: LDL Greater than 189 MG/DL 83 Anion gap measurement may be of limited value in the presence of any alkalosis, especially in a combined acid base disorder. . 84 Note change in reference range as of 02/09/08. The change was based on recommendations from the Citizen Of [place] Diabetes Association. 85 Please note change in reference range effective 07 . 86 A metabolite of Naproxen, O-desmethylnaproxen, has been shown to interfere with the [employer] method for measuring total bilirubin. Samples from patients who have taken Naproxen have shown spurious elevation in total bilirubin levels. 87 CHOLESTEROL INTERPRETATION: Desirable: Less than 200 MG/DL Borderline-High Risk: 200-239 MG/DL High-Risk: 240 MG/DL and over 88 HDL INTERPRETATION: Undesirable: High Risk: Less than 40 MG/DL Desirable: Low Risk: Greater than 60 MG/DL 89 LDL INTERPRETATION: Low Risk Optimal Level: LDL Less than 100 MG/DL Near or Above Optimal: LDL 100-129 MG/DL Borderline High Risk: LDL 130-159 MG/DL High Risk: LDL 160-189 MG/DL Very High Risk: LDL Greater than 189 MG/DL 90 * SERUM LEVELS OF PSA MEASURED USING THE SOLANGE Vetr ACCESS HYBRITECH IMMUNOASSAY SHOULD NOT BE INTERPRETED ABSOLUTE EVIDENCE OF THE PRESENCE OR ABSENCE OF DISEASE. THE PSA VALUE SHOULD BE USED IN CONJUNCTION WITH OTHER PERTINENT CLINICAL DIAGNOSTIC PROCEDURES. A PSA value in the range of 0.1 to 0.6 ng/ml is indeterminate if being used as an indicator of recurrent or residual disease. . 91 PATIENT MAY HAVE RESULTS PER DOCTOR'S AUTHORIZATION. Questions regarding this report should be directed to your doctor. 92 Anion gap measurement may be of limited value in the presence of any alkalosis, especially in a combined acid base disorder. . 93 Please note change in reference range effective 07 . 94 CHOLESTEROL INTERPRETATION: Desirable: Less than 200 MG/DL Borderline-High Risk: 200-239 MG/DL High-Risk: 240 MG/DL and over 95 HDL INTERPRETATION: Undesirable: High Risk: Less than 40 MG/DL Desirable: Low Risk: Greater than 60 MG/DL 96 LDL INTERPRETATION: Low Risk Optimal Level: LDL Less than 100 MG/DL Near or Above Optimal: LDL 100-129 MG/DL Borderline High Risk: LDL 130-159 MG/DL High Risk: LDL 160-189 MG/DL Very High Risk: LDL Greater than 189 MG/DL Procedures Date Code Description Status 03/09/2018 28608 EKG Tracing & Interpretation Completed 01/26/2018 [id number] Diabetic Retinal Eye Exam Completed 01/21/2017 [id number] Diabetic Retinal Eye Exam Completed 11/18/2016 00003 EKG Tracing & Interpretation Completed 06/23/2016 38398 EKG Tracing & Interpretation Completed 06/10/2016 89696 Stress Test Completed 06/10/2016 03265 Myocardial Perfusion Imaging Tomographic (Spect) Completed Multiple Studies 06/02/2016 10783 ECHO Transthoracic, Real-Time 2D With Doppler And Completed Color Flow 03/25/2016 60600 EKG Tracing & Interpretation Completed 01/17/2016 [id number] Diabetic Retinal Eye Exam Completed 09/13/2015 [id number] Colonoscopy Completed 03/22/2015 91177 EKG Tracing & Interpretation Completed 03/12/2014 12253 EKG Tracing & Interpretation Completed 02/13/2014 29870 ECHO Transthoracic, Real-Time 2D With Doppler And Completed Color Flow 01/09/2013 87390 EKG Tracing & Interpretation Completed 01/05/2013 93444 ECHO Transthoracic, Real-Time 2D With Doppler And Completed Color Flow 11/22/2011 34404 Color Flow Doppler/Interp & Reprt Completed 11/22/2011 66128 Pulse Wave/Continuous-Interp.RPT Completed 11/22/2011 30878 ECHO Transthorasic Realtime 2D W Doppler & Color Flow Completed Hosp 11/22/2011 67202 Cardioversion Completed 08/21/2005 [id number] Colonoscopy Completed Encounters Type Date Location Provider Dx Diagnosis Office Visit 04/07/2018 [facility] Internal Casper Donald NP E11.9 Type 2 diabetes 8:40a Medicine - mellitus without [place] complications I10 Essential (primary) hypertension E78.5 Hyperlipidemia, unspecified Office Visit 03/11/2018 Pulmonology And Michelle G47.33 Obstructive sleep 9:00a [facility] REBECCA Lozada, RN, apnea (adult) [facility] CLASSIFICATIONS OFFICER CC/CM-BC (pediatric) Z68.41 Body mass index (BMI) 40.0-44.9, adult Office Visit 03/09/2018 8:45a [facility] Robert Stallings I77.810 Thoracic aortic Of Naila Rodriguez M.D., ectasia FACC, FASNC I25.10 Athscl heart disease of [place] coronary artery w/o ang pctrs I48.0 Paroxysmal atrial fibrillation Office Visit 10/07/2017 9:00a [facility] Internal Casper Odilon, E11.9 Type 2 diabetes Medicine - [employer] mellitus without [place] complications I10 Essential (primary) hypertension M79.672 Pain in left foot Office Visit 04/08/2017 9:20a [facility] Internal Max Perez Z00.00 Encntr for Medicine - Angel Llamas general adult [place] medical exam w/o abnormal findings E11.9 Type 2 diabetes mellitus without complications I10 Essential (primary) hypertension I25.10 Athscl heart disease of [place] coronary artery w/o ang pctrs E78.2 Mixed hyperlipidemia G47.33 Obstructive sleep apnea (adult) (pediatric) I73.9 Peripheral vascular disease, unspecified Office Visit 03/05/2017 Pulmonology And Michelle G47.33 Obstructive sleep 8:00a [facility] Lozada, RN, apnea (adult) [facility] CLASSIFICATIONS OFFICER CC/CM-BC (pediatric) E66.9 Obesity, unspecified Z68.41 Body mass index (BMI) 40.0-44.9, adult Office Visit 03/03/2017 10:00a Surgical Gene Rodriguez 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 w/o perforation or abscess w/o bleeding Office Visit 01/11/2017 9:00a [facility] Internal Max Perez I71.4 Abdominal aortic Kelley Llamas M.D. aneurysm, without [place] rupture I10 Essential (primary) hypertension E11.9 Type 2 diabetes mellitus without complications I25.10 Athscl heart disease of [place] coronary artery w/o ang pctrs E78.2 Mixed hyperlipidemia G47.30 Sleep apnea, unspecified Office Visit 11/18/2016 9:15a [facility] Robert Chandrakant I25.10 Athscl heart Of [facility] Angel Rodriguez, disease of FACC, FASNC [place] coronary artery w/o ang pctrs I48.0 Paroxysmal atrial fibrillation I49.5 Sick sinus syndrome Office Visit 10/06/2016 9:00a [facility] Internal Max Perez E11.9 Type 2 diabetes Kelley Llamas M.D. mellitus without [place] complications I10 Essential (primary) hypertension E78.2 Mixed hyperlipidemia I25.10 Athscl heart disease of [place] coronary artery w/o ang pctrs I71.4 Abdominal aortic aneurysm, without rupture Office Visit 06/23/2016 1:45p [facility] Robert Stallings I25.10 Athscl heart Of Naila Rodriguez M.D., disease of FACC, FASNC [place] coronary artery w/o ang pctrs R94.31 Abnormal electrocardiogram [ECG] [EKG] I71.4 Abdominal aortic aneurysm, without rupture Z01.810 Encounter for preprocedural cardiovascular examination Office Visit 04/07/2016 9:20a [facility] Internal Max Perez Z00.00 Encntr for Kelley Llamas M.D. general adult [facility] medical exam w/o abnormal findings E11.9 Type 2 diabetes mellitus without complications I10 Essential (primary) hypertension E78.2 Mixed hyperlipidemia I25.10 Athscl heart disease of [place] coronary artery w/o ang pctrs G47.30 Sleep apnea, unspecified I71.4 Abdominal aortic aneurysm, without rupture M79.671 Pain in right foot Office Visit 03/25/2016 9:00a [facility] Robert Stallings I25.10 Athscl heart Of Naila Rodriguez M.D., disease of [facility], FASNC [place] coronary artery w/o ang pctrs R94.31 Abnormal electrocardiogram [ECG] [EKG] Office Visit 03/03/2016 Pulmonology And Michelle G47.33 Obstructive sleep 3:00p [facility] RE[facility]CCA Lozada, RN, apnea (adult) [facility] (pediatric) Office Visit 01/02/2016 [facility] Internal Max Perez E11.9 Type 2 diabetes 9:00a Kelley Llamas M.D. mellitus without [place] complications I10 Essential (primary) hypertension E78.2 Mixed hyperlipidemia Z23 Encounter for immunization Office Visit 12/02/2015 4:20p [facility] Internal Max Perez E11.9 Type 2 diabetes Kelley Llamas M.D. mellitus without [place] complications I10 Essential (primary) hypertension E78.2 Mixed hyperlipidemia G47.30 Sleep apnea, unspecified Office Visit 10/02/2015 9:00a [facility] Internal Max Perez I10 Essential ( primary) Kelley Llamas M.D. hypertension [place] E78.2 Mixed hyperlipidemia G47.30 Sleep apnea, unspecified R73.01 Impaired fasting glucose I25.10 Athscl heart disease of [place] coronary artery w/o ang pctrs I71.4 Abdominal aortic aneurysm, without rupture Z23 Encounter for immunization Office Visit 03/28/2015 9:00a [facility] Internal Max Perez Z00.00 Encntr for Kelley Llamas M.D. general adult [place] medical exam w/o abnormal findings I10 Essential (primary) hypertension E78.2 Mixed hyperlipidemia I25.10 Athscl heart disease of [place] coronary artery w/o ang pctrs I71.4 Abdominal aortic aneurysm, without rupture G47.30 Sleep apnea, unspecified R73.01 Impaired fasting glucose Office Visit 03/22/2015 2:15p [facility] Robert Stallings I25.9 Chronic ischemic Royce Rodriguez., heart disease, FACC, FASNC unspecified I10 Essential (primary) hypertension I25.10 Athscl heart disease of [place] coronary artery w/o ang pctrs Office Visit 02/19/2015 Pulmonology And Michelle 327.23 Obstructive Sleep 3:00p [facility]CCA Lozada, Apnea Adult & [facility] RN, [facility]- Pediatric Office Visit 02/07/2015 [facility] Internal Max Perez 562.11 Diverticulitis 2:00p Kelley Llamas M.D. Colon W/O [place] Hemorrhage 788.1 Dysuria 441.4 Aneurysm Abdominal W/O Rupture 789.00 Pain Abdominal Unspec Site Office Visit 02/02/2015 [facility] 562.13 Diverticulitis 1:15p Asseliza brar M.D. Colon W/ Hemorrhage Hospitalists 278.00 Obesity Unspec Office Visit 02/01/2015 [facility] 562.13 Diverticulitis 1:15p Asseliza brar M.D. Colon W/ Hemorrhage [facility]ists 278.00 Obesity Unspec Office Visit 01/31/2015 [facility] 562.13 Diverticulitis 1:14p eliza Johnson M.D. Colon W/ Hemorrhage Hospitalists 278.00 Obesity Unspec Office Visit 09/26/2014 9:00a [facility] Internal Max Perez 401.1 Hypertension Benign Kelley Llamas M.D. [place] 272.2 Hyperlipidemia Mixed 414.01 Coronary Atherosclerosis [place] 780.57 Unspecified Sleep Apnea 790.21 Impaired Fasting Glucose Office Visit 06/01/2014 11:00a [facility] Internal Max ELefty 441.4 Aneurysm Kelley Llamas M.D. Abdominal W/O [place] Rupture 401.1 Hypertension Benign 272.2 Hyperlipidemia Mixed 414.01 Coronary Atherosclerosis [place] 780.57 Unspecified Sleep Apnea Office Visit 03/27/2014 9:00a [facility] Internal Max Perez V70.0 Examination Kelley Llamas M.D. General Medical [place] Routine [facility] 401.1 Hypertension Benign 272.2 Hyperlipidemia Mixed 414.01 Coronary Atherosclerosis [place] 780.57 Unspecified Sleep Apnea 724.2 Lumbago 354.0 Carpal Tunnel Syndrome V77.1 Screening Diabetes Mellitus 441.4 Aneurysm Abdominal W/O Rupture Office Visit 03/12/2014 Jenifer Stallings 414.01 Coronary 9:30a Cardiology Of Angel Rodriguez, Atherosclerosis [facility], [facility] [place] Office Visit 03/24/2013 [facility] Internal Max Perez 401.1 Hypertension Benign 9:20a Kelley Llamas M.D. [place] V70.0 Examination General Medical Routine AT Health Care Facility 414.01 Coronary Atherosclerosis [place] 272.2 Hyperlipidemia Mixed 780.57 Unspecified Sleep Apnea 724.2 Lumbago 354.0 Carpal Tunnel Syndrome 441.4 Aneurysm Abdominal W/O Rupture V73.89 Screening Examination Viral Diseases Other Spec Office Visit 01/09/2013 8:15a Jenifer Stallings 414.9 Ischemic Heart Cardiology Of Angel Rodriguez, Disease Chronic [facility], [facility] Unspec Office Visit 07/08/2012 8:15a Jenifer Stallings 427.31 Atrial Cardiology Of Angel Rodriguez, Fibrillation [facility], [facility] Office Visit 11/22/2011 3:14p Sam Perez 427.31 Atrial Cardiology Angel Boateng Fibrillation 414.01 Coronary Atherosclerosis [place] 401.1 Hypertension Benign 278.01 Obesity Morbid Office Visit 10/09/2011 9:00a [facility] Internal Max Perez 401.1 Hypertension Benign Kelley Llamas M.D. [place] 414.01 Coronary Atherosclerosis [place] 272.2 Hyperlipidemia Mixed 780.57 Unspecified Sleep Apnea 790.21 Impaired Fasting Glucose 780.4 Dizziness & Giddiness 723.1 Cervicalgia Office Visit 01/30/2011 9:40a DO Not Use Naila Max E. V70.0 Examination AT Parkhi Llamas M.D. General Medical Routine AT Health Care Facility 401.1 Hypertension Benign 414.01 Coronary Atherosclerosis [place] 272.0 Hypercholesterolemia Pure 780.57 Unspecified Sleep Apnea 441.4 Aneurysm Abdominal W/O Rupture Office Visit 12/03/2009 9:00a DO Not Use Hopper Operator Max E. V70.0 Examination AT [facility] Angel Llamas General Medical Routine AT Health Care Facility 401.1 Hypertension Benign 414.01 Coronary Atherosclerosis [place] 272.0 Hypercholesterolemia Pure 780.57 Unspecified Sleep Apnea Office Visit 07/16/2009 4:00p DO Not Use Hopper Operator Max E. 562.11 Diverticulitis Colon AT [facility] Angel Llamas W/O Hemorrhage 441.4 Aneurysm Abdominal W/O Rupture Office Visit 2008 [facility] Max E. 272.0 Hypercholesterolemia Pure 10:00a Assoc AT [facility] 414.01 Coronary Atherosclerosis [place] 401.1 Hypertension Benign 780.79 Malaise And Fatigue Other V06.1 Opuzrrmnqv-Bcoiezv-Temzzgge Combined (DTaP) Office Visit 11/30/2007 [facility] Max E. 272.0 Hypercholesterolemia Pure 10:00a Assoc AT [facility] 414.01 Coronary Atherosclerosis [place] 401.1 Hypertension Benign Office Visit 05/31/2007 10:00a [facility] Max E. 414.01 Coronary Assoc AT [facility] [place] 401.1 Hypertension Benign 272.2 Hyperlipidemia Mixed Plan of Treatment Future Appointment(s):10/06/2018 8:40 am - Casper Donald NP at [facility] Internal Medicine [facility]03/17/2019 8:15 am - Michelle Lozada DNP, RN, CLASSIFICATIONS OFFICER CC/CM-BC at [facility]07/08/2018 - Casper Donald [id number] Essential ( primary) hypertensionComments:~B_HYPERTENSION:~b_Controlled on current regimen. Continue present management. On aspirin 81mg daily. Continue to try to increase exercise.
[2018-07-21] MEDS ORDERED: Nitroglycerin TAB 0.4 MG* 0.4 MG TAB SL PRN (09:09)
[2018-07-21] MEDS ORDERED: Dextrose 50% Syringe 50 ML* 25 GM/50 ML SYRINGE IV PUSH PRN (09:42)
[2018-07-21] MEDS ORDERED: Insulin LISPRO* 1 UNITS UNIT SUBCUT SCH (10:00)
[2018-07-21] MEDS: KCL 10 MEQ/50 ML IVPREMIX* 10 MEQ/50 ML BAG IV SCH ×4 (10:18→17:22)
[2018-07-21] MEDS: Apixaban* 5 MG TAB PO SCH ×2 (10:19→20:23)
--- NOTE | 2018-07-21 10:39 | CONSULT ---
Subjective Date of Service: 07/21/18 Interval History: Date of admission and consult: 07/21/2018 PCP: Casper Donald NP Children'S Minister: Dr. Robert Rodriguez Service: Hospitalist CC Reason for consult: Atrial fibrillation HPI Neri Rodrigues is a 62 year old man with a history as below. He has had cough and feeling unwell for almost a week. No fevers or chills. He does have clearish mucous production. He started developing palpitations about this time. He denies any chest pain, abdomen pain bleeding, melena or syncope over this time period. He felt that he had a respiratory tract infection and has not been eating or drinking very much this past week. This morning he felt his heart racing uncontrollably and came to the ER. He was found with rapid atrial fibrillation and evidence of dehydration. Allergies: No Known Drug Allergy 05/30/07 PMHx AAA s/p endovascular repair follows with Dr. 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 Personal Habits: Smoking: Quit pipe 2011 on Father's Day ; Quit cigarretes >10 yrs ago, Denies alcohol use.Drug Use: Denies Drug Use.Daily Medications Active Medications: Apixaban (Eliquis*) 5 mg PO BID [facility] Last Admin: 07/21/18 10:19 Dose: 5 mg Aspirin (Aspirin Ec Tab*) 81 mg PO DAILY [facility] Dextrose (D50w Syringe 50 Ml*) 12.5 gm IV PUSH .FOR FS < 60 - SS PRN PRN Reason: FS < 60 Diltiazem HCl 125 mg/ Sodium (Chloride) 125 mls @ 5 mls/hr IV ONCE ONE; Protocol Stop: 07/22/18 08:59 Last Admin: 07/21/18 08:45 Dose: 5 mls/hr Potassium Chloride (Potassium Chloride 10 Meq/50 Ml Ivpremix*) 10 meq in 50 mls @ 50 mls/hr IV Q1H [facility] Stop: 07/21/18 13:59 Last Admin: 07/21/18 10:18 Dose: 50 mls/hr Insulin Human Lispro (Humalog*) 0 units SUBCUT Q4HR GENESIS; Protocol Metoprolol Succinate (Toprol Xl Tab*) 50 mg PO DAILY [facility] Nitroglycerin (Nitroglycerin Tab 0.4 Mg*) 0.4 mg SL Q5M PRN PRN Reason: ANGINA Home Medications: Coenzyme Q10 (Ubidecarenone) [Coq10] 100 mg PO DAILY 05/04/14 [History Confirmed 07/21/18] Aspirin EC TAB* [Ecotrin EC Low Dose*] 81 mg PO DAILY 01/31/15 [History Confirmed 07/21/18] Metoprolol Succinate XL TAB* [Toprol XL TAB*] 50 mg PO DAILY 01/31/15 [History Confirmed 07/21/18] Nitroglycerin TAB 0.4 MG* 0.4 mg SL Q5M PRN 01/31/15 [History Confirmed 07/21/18 ] Simvastatin (NF) [Zocor (NF)] 40 mg PO BEDTIME 01/31/15 [History Confirmed 07/21] Metformin HCl 500 mg PO QID 07/21/18 [History Confirmed 07/21/18] Ramipril 5 mg PO SEE INSTRUCTIONS 07/21/18 [History Confirmed 07/21/18] Ramipril 10 mg PO SEE INSTRUCTIONS 07/21/18 [History Confirmed 07/21/18] Review of Systems - Measurements Intake and Output: Intake and Output Last 24 Hours 07/19/18 07/20/18 07/21/18 07/22/18 06:59 06:59 06:59 06:59 Intake Total 1000 Balance 1000 Weight 267 lb Intake: IV Fluids 1000 - Review of Systems Constitutional Symptoms: Positive: Weakness, Fatigue Negative: Weight Gain, Weight Loss, Fever, Night Sweats, Unexplained Falls Dermatology: Negative: Rash, Skin Lesions HEENT: Negative: Change in Hearing, Vertigo Eyes: Negative: Change in Vision, Double Vision Thyroid: Positive: Palpitations Negative: Thyroid Nodule, Cold Intolerance, Heat Intolerance, Sweatiness, Weight Loss, Weight Gain Pulmonary: Positive: Cough Negative: Sputum, Hemoptysis, Wheezing, Respiratory Distress, Shortness of Breath, COPD, Asthma, Exercise Intolerance, Home Oxygen, Other Cardiology: Positive: Palpitations, Peripheral Vascular Dis Negative: Chest Pain, Shortness of Breath, Swelling of Ankles, Edema, Syncope , Claudication, Paroxysmal Nocturnal Dyspnea, Orthopnea Gastroenterology: Positive: Anorexia Negative: Abdominal Pain, Nausea, Vomiting, Indigestion, Difficulty Swallowing, Constipation, Blood in Stools, Haematemesis, Melena Genital - Urinary: Negative: Dysuria, Hematuria Musculoskeletal: Negative: Joint Pain, Joint Stiffness Endocrinology: Positive: Obesity, Diabetes Negative: Polydipsia, Polyuria Hematologic/Lymphatic: Positive: Use of Antiplatelet Drugs Negative: Anemia, Easy Brusing, Use of Anticoagulant Neurology: Negative: Change in Balancing, Change in Coordination, Hx of Stroke\TIA, Hx Seizures Psychiatry: Negative: Unusual Anxiety, Suicidal Ideation Allergic/Immunologic: Negative: Hx Anaphylaxis, Hx Angioedema, Hx HIV, Immunocompromise Review of Systems Statement: All other review of systems negative, unless stated above. Objective Vital Signs: Temp Pulse Resp BP Pulse Ox 98 F 105 19 101/67 95 07/21/18 09:49 07/21/18 09:49 07/21/18 09:49 07/21/18 09:49 07/21/18 09:49 Oxygen Devices in Use Now: None Appearance: nad, pleasant Ears/Nose/Mouth/Throat: Clear Oropharnyx, Mucous Membranes Moist Neck: Trachea Midline, - - uncertain jvp Respiratory: Symmetrical Chest Expansion and Respiratory Effort, - - diffuse scattered wheeze, crackles left base Cardiovascular: - - tachycardia, irregular, no signficant murmur Abdominal: - - soft, obese, nontender Extremities: No Edema, No Clubbing, Cyanosis Skin: No Rash or Ulcers Neurological: Alert and Oriented x 3 Laboratory Results: 07/21/18 07:31 07/21/18 07:31 INR (Anticoag Therapy) 0.87 (0.77-1.02) 07/21/18 07:31 Total Bilirubin 0.90 mg/dL (0.2-1.0) 07/21/18 07:31 AST 57 U/L (13-39) H 07/21/18 07:31 ALT 62 U/L (7-52) H 07/21/18 07:31 Alkaline Phosphatase 46 U/L (34-104) 07/21/18 07:31 B-Natriuretic Peptide 15 pg/mL (<=100) 07/21/18 07:31 Total Protein 7.8 g/dL (6.4-8.9) 07/21/18 07:31 Albumin 4.4 g/dL (3.2-5.2) 07/21/18 07:31 Globulin 3.4 g/dL (2-4) 07/21/18 07:31 Albumin/Globulin Ratio 1.3 (1-3) 07/21/18 07:31 TSH 5.54 mcIU/mL (0.34-5.60) 07/21/18 07:31 07/21/18 07:31 Troponin I 0.01 mg 2.1 03/2018 hgba1c 6.7 tri 275, tchol 121, hdl 37, ldl 29 Diagnostic Imaging: Echocardiogram - (06/02/2016) Mild CLVH . Small inferior-lateral WMA. EF 55-60 %. Doppler evidence of grade I (impaired) diastolic dysfunction.Mild LAE. Functionally benign valves. Mildly dilated Asc. AO. Stress Test - (06/10/2016) Normal chemical nuclear stress test. No perfusion defects seen. EF 59%. TID 1.02. Cardiac Catheterization - (03/07/2004) His last cardiac catheterization with PCI completed in February 2004 demonstrated a normal left main coronary artery, left circumflex 100% totally occluded, LAD stent patent, RCA with severe lesion for which he then had the drug-eluting stent PCI to the RCA. CXR 07/21/2018: Lungs clear EKG Data: EKG 07/21/2018: Rapid atrial fibrillation rate 160 bpm, non-specific st/t changes EKG 02/06/2018: Sinus bradycardia 54 bpm, LVH criteria Assessment/Plan 1. Symptomatic rapid atrial fibrillation - Respiratory tract infection induced - Has history of prior episode 11/2011 - Chads2-vasc score at least 2, this episode provoked 2. CAD s/p PCI 3. AAA repair 4. Obesity 5. Sleep apnea on CPAP 6. HTN 7. DM 8. 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 Otherwise respiratory tract evaluation and treatment as per primary service - YEMI/cardioversion recommended. Risks, benefits alternatives discussed and patient wishes to proceed Thank you for allowing me to participate in the cardiovascular care of this patient. Please do not hesitate to contact me with questions or concerns.
[2018-07-21] MEDS ORDERED: Midazolam* 1 MG/ML 10 ML VIAL (10 MG) ONE (10:42)
[2018-07-21] MEDS ORDERED: fentaNYL* 50 MCG/ML 2 ML VIAL (100 MCG VIAL) ONE (10:42)
[2018-07-21] MEDS ORDERED: Naloxone* 0.4 MG/ML 1 ML VIAL ONE (10:43)
[2018-07-21] MEDS ORDERED: Flumazenil* 0.1 MG/ML 5 ML MDV ONE (10:43)
[2018-07-21] MEDS ORDERED: Lidocaine 2% VISCOUS* 15 ML UDC ONE ×2 (10:44)
[2018-07-21] MEDS ORDERED: Albuterol 2.5 MG/3 ML NEB.SOL* (0.083%) INH ONE ×2 (11:13→12:00)
--- NOTE | 2018-07-21 11:45 | HP ---
CC: Dr. Llamas; Dr. Rodriguez; Dr. Rajat Goyal. HISTORY AND PHYSICAL: DATE OF ADMISSION: 07/21/18 TIME OF EVALUATION: 9 a.m. PRIMARY CARE PROVIDER: Dr. Llamas. TREE TRIMMER HELPER: Dr. Rodriguez. CONSULTING TREE TRIMMER HELPER: Dr. Rajat Goyal. CHIEF COMPLAINT: Palpitations. HISTORY OF PRESENT ILLNESS: Mr. Rodrigues is a 62-year-old male with a past medical history of morbid obesity with a BMI of 40.6, an episode of atrial fibrillation in 2014; coronary artery disease; hype rtension; hyperlipidemia;, obstructive sleep apnea, on CPAP at night; diverticulitis, who presented t o the emergency room with complaints of palpitations. The patient was found to have atrial fibrillation in 2011. At that time he was cardioverted and he s tates that since then he has had no major episodes of AFib. He states that he will have sporadic, jay ef episodes of palpitation that he is aware is the AFib, but they are usually not symptomatic and res olve spontaneously, quickly. He states that 5 days ago he came down with a cold and noticed that the episodes were more frequent, although still brief and with spontaneous resolution. Today, when he wa s walking to work it was very cold and he felt that his heart was beating very fast. He went in, tri ed to warm himself and rest, but the heart was still going fast. He was sweating. He felt a little dizzy and when he checked his pulse was 160, reason why he came to the emergency room for further heron luation. In the emergency room his initial EKG showed atrial fibrillation with rapid ventricular rate with a h eart rate in the 160s and he was started on a Cardizem drip. He denies chest pain. He did have a little bit of shortness of breath with exertion today while walk ing to work, but he thought it was secondary to the extreme cold. He denies fever, chills, nausea, v omiting, diarrhea, or urinary complaints. PAST MEDICAL HISTORY: 1. Coronary artery disease. The patient had angioplasty and stent to the LAD and angioplasty of the left circumflex in 1996 and he follows with Dr. Rodriguez. 2. Episode of atrial fibrillation status post cardioversion in 2011 3. Type 2 diabetes. 4. Hypertension. 5. Hyperlipidemia. 6. Diverticulitis. 7. Infrarenal abdominal aortic aneurysm. PAST SURGICAL HISTORY: Status post umbilical hernia repair. MEDICATIONS: 1. Aspirin 81 mg p.o. daily. 2. Co-Q10 at 100 mg p.o. daily. 3. Metformin 500 mg p.o. q.i.d. 4. Metoprolol succinate 50 mg p.o. daily. 5. Nitroglycerin 0.4 mg sublingual q.5 minutes p.r.n. chest pain. 6. Ramipril 10 mg p.o. in the morning and 5 mg p.o. in the evening. 7. Simvastatin 40 mg p.o. at bedtime. ALLERGIES: No known drug allergies. FAMILY HISTORY: Mother has a history of heart disease and atrial fibrillation. Father had CAD. SOCIAL HISTORY: The patient was a smoker from age 29 to age 49. He use to smoke regular cigarettes and then he was smoking pipes, but has also quit. He denies alcohol or drug use. He states that his caffeine intake is minimal. Surrogate decision maker is his son Yasir Rodrigues, phone number is [phone]. REVIEW OF SYSTEMS: A 14-point review of systems was performed and all the pertinent negative and pos itive findings in the HPI. PHYSICAL EXAMINATION GENERAL: The patient is a pleasant, morbidly obese gentleman, lying on the ED stretcher in no acute distress. VITAL SIGNS: Temperature 98.0, heart rate is 105, respiratory rate is 20, oxygen saturation is 95% o n room air, blood pressure is 101/67. CHEST: Breath sounds bilaterally. No added sounds. CVS: Normal S1 and S2. Irregularly irregular. Tachycardic. ABDOMEN: Soft, nontender, and nondistended. Bowel sounds are present. The abdomen is morbidly obes e. EXTREMITIES: No edema. NEUROLOGIC: He is alert and oriented x3, able to move all 4 extremities. LABORATORY AND IMAGING DATA: The patient had a CBC that showed a WBC of 12.5, hemoglobin of 16, hem atocrit of 46, platelets of 140 with 67% neutrophils. INR is 0.87. Chemistry showed a sodium of 138 , potassium 3.6, chloride 103, bicarb of 23, anion gap of 12, BUN of 22, creatinine of 1.4, glucose o f 172, lactic acid is 3.3. Calcium is 9. Magnesium is 2.1. LFTs showed a total bilirubin of 0.9, T of 57, ALT of 62, troponin of 0.01. BNP was 15, TSH was 5.5. EKG done 07/21/18 at 7:21 a.m. shows atrial fibrillation at 162 beats per minute with an inferior inf arct. His prior EKG from 2011 showed atrial fibrillation but at that time the rate was slower, but yolie hanley already had the signs of inferior wall IA at that time. ASSESSMENT AND PLAN: Mr. Rodrigues is a 62-year-old male with a past medical history of coronary tanner ry disease, hypertension, hyperlipidemia, diabetes, prior episode of atrial fibrillation, morbid obes ity who presented to the emergency room with complains of palpitations, dizziness, lightheadedness, a nd found to have atrial fibrillation with rapid ventricular rate. 1. Atrial fibrillation with rapid ventricular rate. The patient is on a Cardizem drip with heart ra te better controlled at this time. He will be admitted as observation to the telemetry floor and we are going to continue the Cardizem drip. A cardiology consultation was requested with Dr. Goyal and a tentative plan for a YEMI cardioversion. I am going to replete his potassium, continue his metoprol ol as his blood pressure allows. The patient has a CHADS2 VASc sore of 3 (hypertension, type 2 diabetes, and vascular disease) that pu ts him at a 3.2% risk per year for stroke. We discussed risks and benefits of anticoagulation and th e patient is in agreement with anticoagulation with Apixaban. He states that he is very familiar wit h the situation as his mother had atrial fibrillation and developed a GI bleed. So, he states that yolie hanley has had this "speech" about blood thinners and bleeding many times in the past. He also understand s the risk of stroke for the same reason. The plan is for tentative YEMI cardioversion later today wi Dr. Goyal. 2. Mild lactic acidosis. Suspect this is secondary to dehydration as the patient has had poor oral intake during the week due to his cold and he is also on metformin. There is no sign of bacterial in fection at this time. 3. Acute kidney injury. Suspect secondary to dehydration due to poor oral intake, also in the setti ng of GRACE inhibitor use. The patient is going to receive IV hydration and as we control his heart rate he also will have otis r perfusion. We will continue to monitor his renal function. 4. Type 2 diabetes. We are going to hold his metformin. He is n.p.o. for now in preparation for TE E cardioversion, so he will have fingersticks with lispro sliding scale. 5. Coronary artery disease. Appears to be stable at this time. We will check serial troponins. Co ntinue aspirin and metoprolol. 6. DVT prophylaxis. The patient has a score of 3 on the DVT Prophylaxis Assessment Guide and he ana laura l be anticoagulated with Eliquis. 7. Code status is full. TIME SPENT: Approximately 55 minutes was spent with patient interview, medical record review, physic al examination to complete the admission. More than half this time was spent [id number] with the p atient and coordination of care. [id number]/[facility] #: [id number]
[2018-07-21] MEDS ORDERED: Atropine SYRINGE* 0.1 MG/ML 10 ML SYRINGE (1 MG) ONE (11:53)
--- NOTE | 2018-07-21 12:22 | PROCNOTE ---
Cardiology Procedure Note 07/21/2018 Limited YEMI/cardioversion Risks, benefits and alternatives discussed and patient wished to proceed Limited YEMI (given patients tenuous respiratory status) no LA/WARREN thrombus Patient had received 5 mg PO eliquis prior to procedure Patient sedated with total 7 mg IV versed, 100 mcg IV fentanyl Patient successfully cardioverted from rapid atrial fibrillation to normal sinus rhythm with 120J external electrical sync x 1 No complications
[2018-07-21] MEDS: Insulin LISPRO* 1 UNITS UNIT SUBCUT SCH ×3 (14:22→20:23)
[2018-07-21] MEDS ORDERED: KCL 10 MEQ/50 ML IVPREMIX* 10 MEQ/50 ML BAG ONE (17:03)
[2018-07-21] MEDS ORDERED: Simvastatin (NF) 40 MG TAB PO SCH (21:00)
[2018-07-22 06:27] LABS: BUN/Creatinine Ratio 15.1 (8-20); Calcium 8.1 mg/dL (8.6-10.3); EGFR African American 99.3 (>60); EGFR Non-African American 82.1 (>60); Potassium 3.8 mmol/L (3.5-5.0)
[2018-07-22 07:55] VITALS: BP 128/77
[2018-07-22] MEDS: Apixaban* 5 MG TAB PO SCH (08:06)
[2018-07-22] MEDS: Insulin LISPRO* 1 UNITS UNIT SUBCUT SCH (08:06)
[2018-07-22] MEDS ORDERED: Metoprolol Succinate XL TAB* 50 MG PO SCH (09:00)
[2018-07-22] MEDS ORDERED: Aspirin EC TAB* 81 MG TAB.EC PO SCH (09:00)
[2018-07-22 09:01] LABS: Influenza A Molecular POSITIVE (Negative)
[2018-07-22] MEDS ORDERED: Oseltamivir CAP* 75 MG CAP PO SCH (09:15)
--- NOTE | 2018-07-22 20:19 | DS ---
CC: Dr. Llamas; Dr. Rodriguez; Dr. Goyal DISCHARGE SUMMARY: DATE OF ADMISSION: 07/21/18 DATE OF DISCHARGE: 07/22/18 PRIMARY CARE PROVIDER: Dr. Llamas. EP SPECIALIST: Dr. Rodriguez. CONSULTING EP SPECIALIST: Dr. Goyal. DISCHARGE DIAGNOSES: 1. Atrial fibrillation with rapid ventricular rate. 2. Dehydration. 3. Influenza A. SECONDARY DIAGNOSES: 1. Coronary artery disease. 2. Episode of atrial fibrillation in 2012, status post cardioversion. 3. Type 2 diabetes. 4. Hypertension. 5. Hyperlipidemia. 6. History of diverticulitis. 7. Abdominal aortic aneurysm, status post endovascular repair. 8. Obstructive sleep apnea. MEDICATION LIST: 1. Aspirin 81 mg p.o. daily. 2. CoQ10 100 mg p.o. daily. 3. Guaifenesin 600 mg p.o. q.12 hours. 4. Metformin 500 mg p.o. four times a day. 5. Metoprolol succinate 50 mg p.o. daily. 6. Nitroglycerin 0.4 mg sublingual q.5 minutes p.r.n. chest pain. 7. Ramipril 10 mg p.o. in the morning, 5 mg p.o. at bedtime. 8. Simvastatin 40 mg p.o. at bedtime. 9. Mucinex 600 mg p.o. q.12 hours. New medications: 1. Apixaban 5 mg p.o. b.i.d. 2. Oseltamivir 75 mg p.o. b.i.d. for 5 days. HOSPITAL COURSE: Mr. Rodrigues is a 62-year-old male with a past medical history as above that presented to the emergency room on 07/21/18 with complaints of shortness of breath and palpitations. For more details about his presentation, I refer you to his history and physical. In summary, the impression was the patient went into atrial fibrillation with rapid ventricular rate due to dehydration and a viral syndrome. The patient was seen in consultation by Cardiology (Dr. Goyal) and his recommendation was for YEMI cardioversion that the patient underwent. We reviewed risks and benefits and the patient was in agreement with taking apixaban for anticoagulation. The plan is for him to be anticoagulated for at least a month, but this may need to be prolonged if his atrial fibrillation recurs. The patient had an episode of AFib in 2011, was cardioverted, and has been doing well since. The impression is this episode was provoked by his infection. After admission, the patient received information that his grandson tested positive for influenza and we checked him and he was positive for influenza A, so he will be treated with oseltamivir at this time. The patient is medically stable for discharge, to follow up with his primary care provider and Dr. Rodriguez. PHYSICAL EXAMINATION: Vital Signs: Temperature 97.6, heart rate is 65, respiratory rate is 20, oxygen saturation is 95% on room air, blood pressure is 128/77. General: The patient is a pleasant gentleman, sitting up in bed, in no acute distress. CVS: Normal S1, S2. Regular rate and rhythm. Chest: Breath sounds bilaterally, with no added sounds. Abdomen is obese, bowel sounds present. Neuro: He is alert and oriented x3, able to move all 4 extremities. DIET: Heart healthy, consistent carb diet, avoid caffeine. ACTIVITIES: As tolerated. DISPOSITION: To home. STATUS WHILE IN THE HOSPITAL: Observation. Please keep in mind, this is a summarized version of this patient's hospital stay. If you need more information , please feel free to call me at [phone] or please obtain the full medical records. TIME SPENT: Approximately 45 minutes was spent to complete this discharge. [id number]/[facility] #: [id number] MTDD
== END 2018-07-22 10:35 | disposition home or self-care (01) ==
LOC: ED 07:09 → MEDTELE 08:59
PROVIDERS: ADMIT Internal Medicine; ATTEND Internal Medicine
DX: I48.2 Chronic atrial fibrillation (principal); E86.0 Dehydration; J11.1 Influenza due to unidentified influenza virus with other respiratory manifestations; I25.10 Atherosclerotic heart disease of native coronary artery without angina pectoris; E11.9 Type 2 diabetes mellitus without complications; I10 Essential (primary) hypertension; E78.5 Hyperlipidemia, unspecified; I71.4 Abdominal aortic aneurysm, without rupture; G47.33 Obstructive sleep apnea (adult) (pediatric); Z79.82 Long term (current) use of aspirin
CPT/HCPCS: 36415; 71045; 80048; 80053; 83036; 83605; 83735; 83880; 84443; 84450; 84460; 84484; 85025; 85610; 92960; 93005; 93312; 93325; 94660; 96361; 96365; 96366; 99156; A9270-GY; G0378; J0461; J2250; J2310; J3010; J3480

== ENCOUNTER 2018-12-12 05:12 | Emergency (ER) | payer BC ==
--- NOTE | 2018-12-12 07:05 | ED ---
Lower Extremity - HPI Summary HPI Summary: Patient is a 63-year-old male who presents emergency department for right ankle pain and swelling 3-4 days. Patient does not recall any injuries but states he was helping his father this weekend and doing a lot of physical activity. Patient states he noticed some redness to the outside of the ankle today and redness starting to his great toe. Patient states he has had gout in the past and symptoms seem similar today. Patient does note that he has been having some mild pain in his right ankle for several weeks to months and has an appointment to see his family doctor about. Patient has a history of atrial fibrillation, diabetes, obesity, HDL. - History of Current Complaint Chief Complaint: EDExtremityLower Stated Complaint: ANKLE PAIN PER PT Time Seen by Provider: 12/12/18 06:53 Hx Obtained From: Patient Pain Intensity: 8 - Allergies/Home Medications Allergies/Adverse Reactions: Allergies Allergy/AdvReac Type Severity Reaction Status Date / Time No Known Allergies Allergy Verified 12/12/18 05:16 Home Medications: Home Medications Rivaroxaban TAB(*) [Xarelto 20 mg] 20 mg PO DAILY 12/12/18 [History Confirmed ] PMH/Surg Hx/FS Hx/Imm Hx Previously Healthy: Yes Endocrine/Hematology History: Denies: Hx Diabetes Cardiovascular History: Reports: Hx Aneurysm - AAA repair, Hx Angina, Hx Angioplasty - 3 stents, Hx Atrial Fibrillation, Hx Coronary Artery Disease, Hx Hypercholesterolemia, Hx Hypertension, Hx Peripheral Vascular Disease Denies: Hx Auto Implanted Cardiovert Defib Respiratory History: Reports: Hx Sleep Apnea - current CPAP user Denies: Hx Asthma, Hx Chronic Obstructive Pulmonary Disease (COPD) GI History: Reports: Hx Diverticulosis, Other GI Disorders - hernia repair History: Denies: Hx Renal Disease Musculoskeletal History: Reports: Hx Back Problems - chronic pain, was told to do PT, has not done so yet 06/2013 Sensory History: Reports: Hx Contacts or Glasses, Hx Hearing Problem Denies: Hx Hearing Aid Opthamlomology History: Reports: Hx Contacts or Glasses Neurological History: Denies: Hx Seizures, Hx Spinal Cord Injury, Hx Transient Ischemic Attacks ( TIA) - Surgical History Surgery Procedure, Year, and Place: umbilical hernia repair x 10 yrs, five heart caths with 3 stents placed Hx Anesthesia Reactions: No Infectious Disease History: No Infectious Disease History: Denies: Traveled Outside the [place] in Last 30 Days - Family History Known Family History: Positive: Other - Mother and father positive for coronary disease, Sister has arrhythmia, Non-Contributory - Social History Occupation: Employed Full-time Lives: With Family Alcohol Use: None Substance Use Type: Reports: None Smoking Status (MU): Never Smoked Tobacco Review of Systems Constitutional: Negative Negative: Fever, Chills Gastrointestinal: Negative Negative: Vomiting, Nausea Positive: Other - Right ankle pain and edema Positive: Other - mild redness to right ankle Neurological: Negative Negative: Weakness, Paresthesia, Numbness All Other Systems Reviewed And Are Negative: Yes Physical Exam Triage Information Reviewed: Yes Vital Signs On Initial Exam: Initial Vitals Temp Pulse Resp BP Pulse Ox 98.5 F 68 15 130/63 99 12/12/18 05:15 12/12/18 05:15 12/12/18 05:15 12/12/18 05:15 12/12/18 05:15 Vital Signs Reviewed: Yes Appearance: Positive: Well-Appearing - Pt. sitting on bed in NAD. Pleasant. Skin: Positive: Warm, Dry Head/Face: Positive: Normal Head/Face Inspection Eyes: Positive: Normal, EOMI Neck: Positive: Supple Musculoskeletal: Positive: Other - Diffuse edema over lateral malleolus. Mild overlying erythema. No significant tenderness on palpation. No breaks or wounds. Small area redness to the base of the right great toe. No proximal leg edema, calf pain or palpable cords. Neurological: Positive: Normal, CN Intact II-III Psychiatric: Positive: Affect/Mood Appropriate Diagnostics - Vital Signs Vital Signs Temp Pulse Resp BP Pulse Ox 12/12/18 05:15 98.5 F 68 15 130/63 99 - Laboratory Lab Statement: Any lab studies that have been ordered have been reviewed, and results considered in the medical decision making process. Lower Extremity Course/Dx - Course Course Of Treatment: Patient presenting with atraumatic swelling and redness to right ankle. He has a small area of redness to the base of great toe as well. He is afebrile and well appearing. Exam most consistant with gout over cellulitis. Xray obtained shows chronic arthritis changes without fx per my reading. Will treat for gout with prednisone. Discussed foods to avoid. To elevate leg and apply warm compresses. Close f.u with PCP and return to ER for increased redness, swelling, pain, fever or if concerned. Pt. understands and agrees with plan. - Diagnoses Differential Diagnosis/HQI/PQRI: Positive: Cellulitis, Contusion, Fracture ( Closed), Gout, Sprain, Strain Provider Diagnoses: Gout, Edema of right ankle Discharge - Sign-Out/Discharge Documenting (check all that apply): Patient Departure Patient Received Moderate/Deep Sedation with Procedure: No - Discharge Plan Condition: Good Disposition: HOME Prescriptions: predniSONE TAB* [Deltasone 20 MG TAB*] 40 mg PO DAILY #10 tab Patient Education Materials: Low Purine Diet (ED), Gout (ED), Arthralgia (ED) Referrals: Gabriella Bender MD [Primary Care Provider] - Sathish Mary MD [Medical Doctor] - Additional Instructions: Schedule follow up appointment with PCP and orthopedics Take prednisone as directed Elevate leg and apply warm compresses Avoid foods listed in handout Return to ER for increased pain, redness, fever, or if concerned - Billing Disposition and Condition Condition: GOOD Disposition: Home
[2018-12-12 07:50] VITALS: BP 154/93
== END 2018-12-12 07:52 | disposition home or self-care (01) ==
LOC: ED 05:12
DX: M10.9 Gout, unspecified (principal); I48.91 Unspecified atrial fibrillation; I10 Essential (primary) hypertension; I25.10 Atherosclerotic heart disease of native coronary artery without angina pectoris
CPT/HCPCS: 99282